=== PATIENT | male | born 1960 | race Caucasian/White ===

== ENCOUNTER 2017-07-26 11:45 | Inpatient (IN) | payer MEDICAID, OTHER ==
[~2017-07-26 11:45] MED LIST: ETOMIDATE 20 MG INJ; LIDOCAINE 100 MG SYRINGE; ROCURONIUM 50 MG INJ
[2017-07-26] MEDS: ONDANSETRON 4 MG INJ IV ×2 (13:04→19:55)
[2017-07-26] MEDS: MAGNESIUM SULFATE 2 GM, MULTIVITAMINS 10 ML, THIAMINE 100 MG, FOLIC ACID 1 MG in SOD CH... IV (13:40)
[2017-07-26] MEDS: SOD CHLORIDE 0.9% 500 ML IV (14:06)
[2017-07-26 14:17] LABS: ADD MAN DIFF? NO
[2017-07-26 14:20] LABS: BASOPHIL # 0.1 10^3/ul (0.0-0.1); BASOPHILS % 1.3 % (0.0-2.0); EOSINOPHILS # 0.1 10^3/ul (0.0-0.5); EOSINOPHILS % 1.1 % (0.0-7.0); HEMATOCRIT 38.4 % (42.0-52.0); HEMOGLOBIN 13.3 g/dl (14.0-18.0); LYMPHOCYTES # 1.7 10^3/ul (0.8-2.9); LYMPHOCYTES % 26.1 % (15.0-51.0); MEAN CORPUSCULAR HEMOGLOBIN 32.8 pg (29.0-33.0); MEAN CORPUSCULAR HGB CONC 34.6 g/dl (32.0-37.0); MEAN CORPUSCULAR VOLUME 94.6 fl (82.0-101.0); MEAN PLATELET VOLUME 11.7 fl (7.4-10.4); MONOCYTE # 0.5 10^3/ul (0.3-0.9); MONOCYTES % 7.4 % (0.0-11.0); NEUTROPHIL # 4.1 10^3/ul (1.6-7.5); NEUTROPHILS % 63.5 % (39.0-77.0); PLATELET COUNT 127 10^3/UL (140-415); POSITIVE DIFF @See below; RED BLOOD COUNT 4.06 10^6/ul (4.70-6.10); RED CELL DISTRIBUTION WIDTH 11.4 % (11.5-14.5)
[2017-07-26 14:20] LABS: WHITE BLOOD COUNT 6.4 10^3/ul (4.8-10.8)
[2017-07-26 14:27] LABS: ALANINE AMINOTRANSFERASE 106 IU/L (13-69); ALBUMIN 4.3 g/dl (3.3-4.9); ALBUMIN/GLOBULIN RATIO 1.04; ALKALINE PHOSPHATASE 184 IU/L (42-121); ANION GAP 18 (8-16); ASPARTATE AMINO TRANSFERASE 300 IU/L (15-46); BILIRUBIN,INDIRECT 0.5 mg/dl (0-1.1); BILIRUBIN,TOTAL 0.5 mg/dl (0.2-1.3); BLOOD UREA NITROGEN 3 mg/dl (7-20); CALCIUM 8.9 mg/dl (8.4-10.2); CARBON DIOXIDE 25 mmol/L (21-31); CHLORIDE 103 mmol/L (97-110); CREATININE 0.47 mg/dl (0.61-1.24); GLUCOSE 199 mg/dl (70-220); POTASSIUM 3.1 mmol/L (3.5-5.1); SODIUM 143 mmol/L (135-144); TOTAL PROTEIN 8.4 g/dl (6.1-8.1)
[2017-07-26] MEDS: LORAZEPAM 2 MG INJ IV (14:30)
[2017-07-26] MEDS: LEVETIRACETAM 1000 MG (PMX) 100 ML IVPB (14:30)
[2017-07-26 14:50] LABS: INR 1.04; PROTIME 13.7 Sec (11.9-14.9); PT RATIO 1.1
[2017-07-26 14:51] LABS: PARTIAL THROMBOPLASTIN TIME 27.7 Sec (25.0-35.0)
[2017-07-26] MEDS: ROCURONIUM 50 MG INJ IV (14:53)
[2017-07-26] MEDS: LIDOCAINE 100 MG SYRINGE IV (14:53)
[2017-07-26] MEDS: ETOMIDATE 20 MG INJ IV (14:55)
[2017-07-26] MEDS ORDERED: MANNITOL 25% 50 ML INJ IV* (15:30)
[2017-07-26] MEDS ORDERED: niCARdipine-NS 0.1MG/ML DRIP 200 ML IV (15:30)
[2017-07-26] MEDS: SOD CHLORIDE 0.9% 1,000 ML IV (15:58)
[2017-07-26] MEDS: MANNITOL 20% 250 ML IV (16:00)
[2017-07-26] MEDS ORDERED: ACETAMINOPHEN 325 MG TAB PO (16:00)
[2017-07-26] MEDS ORDERED: ONDANSETRON 4 MG INJ IV (16:00)
[2017-07-26 16:16] LABS: Allen Test ACCEPTAB; Arterial Base Excess 1.3 mmol/L (-3.0-3); Arterial Blood Gas Oxygen Sat 99.7 mmHG (95.0-98.0); Arterial COHb 0.6 % (0.0-3.0); Arterial Fraction of Oxyhgb 98.9 % (93.0-99.0); Arterial MetHb 0.2 % (0.0-1.5); Arterial Total Hemglobin 14.3 g/dl (12.0-18.0); Arterial pCO2 47.2 mmhg (35-45); MODE VENT - AC; Site Right Radial
[2017-07-26] MEDS: SOD CHLORIDE 0.9% 100 ML (16:35)
[2017-07-26] MEDS: IOHEXOL 100 ML (16:35)
[2017-07-26] MEDS: LIDOCAINE 1%/EPI 30 ML INJ INJ (17:21)
[2017-07-26] MEDS: niCARdipine 25 MG in SOD CHLORIDE 0.9% 250 ML IV (17:30)
[2017-07-26] MEDS ORDERED: NACL 0.9% 3 ML SYG IV (17:30)
[2017-07-26] MEDS: PROPOFOL 100 ML IV (17:33)
[2017-07-26 20:40] LABS: AMPHETAMINE/METHAMPHETAMINE Negative (NEGATIVE); BARBITURATES Negative (NEGATIVE); BENZODIAZEPINES Negative (NEGATIVE); CANNABINOIDS Negative (NEGATIVE); COCAINE Negative (NEGATIVE); OPIATES Negative (NEGATIVE)
[2017-07-26] MEDS: LEVETIRACETAM 500 MG (PMX) 100 ML IVPB (22:44)
[2017-07-26] MEDS: NS + KCL 20 MEQ 1,000 ML IV (22:48)
[2017-07-27] MEDS: LORAZEPAM 2 MG INJ IV (02:22)
[2017-07-27] MEDS: PROPOFOL 100 ML IV ×6 (02:22→22:36)
[2017-07-27] MEDS: NS + KCL 20 MEQ 1,000 ML IV ×3 (03:07→23:07)
[2017-07-27] MEDS: LEVOFLOXACIN 500MG/D5W (PMX) 100 ML IVPB (03:19)
[2017-07-27] MEDS: ACETAMINOPHEN 1000MG/100ML IV 100 ML IVPB (03:21)
[2017-07-27 03:25] LABS: ADD MAN DIFF? NO; HAAIG REFLEX REFLEX FILED
[2017-07-27 03:31] LABS: WHITE BLOOD COUNT 12.7 10^3/ul (4.8-10.8)
[2017-07-27 03:31] LABS: ABNORMAL IP MESSAGE 1; BASOPHILS % 0.2 % (0.0-2.0); HEMATOCRIT 33.9 % (42.0-52.0); HEMOGLOBIN 11.8 g/dl (14.0-18.0); LYMPHOCYTES # 0.4 10^3/ul (0.8-2.9); LYMPHOCYTES % 2.8 % (15.0-51.0); MEAN CORPUSCULAR HEMOGLOBIN 32.8 pg (29.0-33.0); MEAN CORPUSCULAR HGB CONC 34.8 g/dl (32.0-37.0); MEAN CORPUSCULAR VOLUME 94.2 fl (82.0-101.0); MEAN PLATELET VOLUME 12.2 fl (7.4-10.4); MONOCYTE # 0.8 10^3/ul (0.3-0.9); MONOCYTES % 6.5 % (0.0-11.0); NEUTROPHIL # 11.4 10^3/ul (1.6-7.5); NEUTROPHILS % 89.9 % (39.0-77.0); PLATELET COUNT 111 10^3/UL (140-415); POSITIVE DIFF @See below; RED CELL DISTRIBUTION WIDTH 11.5 % (11.5-14.5)
[2017-07-27 04:02] LABS: ALANINE AMINOTRANSFERASE 89 IU/L (13-69); ALBUMIN/GLOBULIN RATIO 1.17; ALKALINE PHOSPHATASE 126 IU/L (42-121); ANION GAP 15 (8-16); ASPARTATE AMINO TRANSFERASE 154 IU/L (15-46); BILIRUBIN,INDIRECT 1.3 mg/dl (0-1.1); BILIRUBIN,TOTAL 1.3 mg/dl (0.2-1.3); BLOOD UREA NITROGEN 7 mg/dl (7-20); CALCIUM 8.3 mg/dl (8.4-10.2); CARBON DIOXIDE 30 mmol/L (21-31); CHLORIDE 103 mmol/L (97-110); CREATININE 0.61 mg/dl (0.61-1.24); GLUCOSE 178 mg/dl (70-220); MAGNESIUM 1.4 mg/dl (1.7-2.5); POTASSIUM 3.9 mmol/L (3.5-5.1); SODIUM 144 mmol/L (135-144); TOTAL PROTEIN 7.4 g/dl (6.1-8.1)
[2017-07-27] MEDS: PANTOPRAZOLE 40 MG INJ IV (05:34)
[2017-07-27 06:20] LABS: HEPATITIS B SURFACE ANTIGEN NEGATIVE (NEGATIVE)
[2017-07-27 06:56] LABS: HEPATITIS B CORE ANTIBODY NEGATIVE (NEGATIVE); HEPATITIS C VIRAL ANTIBODY NEGATIVE (NEGATIVE)
[2017-07-27] MEDS: morphine 2 MG INJ IV ×2 (08:51→12:34)
[2017-07-27] MEDS: LEVETIRACETAM 500 MG (PMX) 100 ML IVPB ×2 (08:51→20:24)
[2017-07-27 09:05] LABS: HEMOGLOBIN A1C 5.3 % (0-5.9)
[2017-07-27] MEDS: MULTIVITAMINS 10 ML, THIAMINE 100 MG, FOLIC ACID 1 MG in SOD CHLORIDE 0.9% 1,000 ML IVPB (10:54)
[2017-07-27] MEDS: MAGNESIUM SULFATE 4 GM/100 ML 100 ML IVPB (10:54)
[2017-07-28] MEDS: PROPOFOL 100 ML IV ×5 (02:19→21:11)
[2017-07-28] MEDS: LEVOFLOXACIN 500MG/D5W (PMX) 100 ML IVPB (03:05)
[2017-07-28 04:56] LABS: AADO2 Arterial 81.1 mmHg (7.0-24.0); ADD MAN DIFF? NO; Allen Test ACCEPTAB; Arterial Base Excess 1.2 mmol/L (-3.0-3); Arterial COHb 0.3 % (0.0-3.0); Arterial Fraction of Oxyhgb 98.5 % (93.0-99.0); Arterial HCO3 21.7 mmol/L (22.0-26.0); Arterial MetHb 0.2 % (0.0-1.5); Arterial Total Hemglobin 10.9 g/dl (12.0-18.0); Arterial pCO2 22.9 mmhg (35-45); MODE VENT - AC; Site Right Radial
[2017-07-28 05:07] LABS: ABNORMAL IP MESSAGE 1; BASOPHILS % 0.4 % (0.0-2.0); HEMATOCRIT 28.6 % (42.0-52.0); LYMPHOCYTES # 0.6 10^3/ul (0.8-2.9); LYMPHOCYTES % 7.7 % (15.0-51.0); MEAN CORPUSCULAR VOLUME 94.4 fl (82.0-101.0); MEAN PLATELET VOLUME 12.2 fl (7.4-10.4); MONOCYTE # 0.9 10^3/ul (0.3-0.9); NEUTROPHIL # 6.7 10^3/ul (1.6-7.5); NEUTROPHILS % 80.5 % (39.0-77.0); PLATELET COUNT 89 10^3/UL (140-415); POSITIVE DIFF @See below; RED BLOOD COUNT 3.03 10^6/ul (4.70-6.10); RED CELL DISTRIBUTION WIDTH 11.6 % (11.5-14.5)
[2017-07-28 05:07] LABS: WHITE BLOOD COUNT 8.3 10^3/ul (4.8-10.8)
[2017-07-28 05:31] LABS: ALANINE AMINOTRANSFERASE 67 IU/L (13-69); ALBUMIN 3.4 g/dl (3.3-4.9); ALBUMIN/GLOBULIN RATIO 1.09; ALKALINE PHOSPHATASE 92 IU/L (42-121); ANION GAP 13 (8-16); ASPARTATE AMINO TRANSFERASE 87 IU/L (15-46); BILIRUBIN,INDIRECT 1.6 mg/dl (0-1.1); BILIRUBIN,TOTAL 1.6 mg/dl (0.2-1.3); BLOOD UREA NITROGEN 12 mg/dl (7-20); CALCIUM 8.2 mg/dl (8.4-10.2); CARBON DIOXIDE 23 mmol/L (21-31); CHLORIDE 109 mmol/L (97-110); CREATININE 0.58 mg/dl (0.61-1.24); GLUCOSE 142 mg/dl (70-220); POTASSIUM 3.1 mmol/L (3.5-5.1); SODIUM 142 mmol/L (135-144); TOTAL PROTEIN 6.5 g/dl (6.1-8.1)
[2017-07-28] MEDS: NS + KCL 20 MEQ 1,000 ML IV ×2 (05:35→18:38)
[2017-07-28] MEDS: PANTOPRAZOLE 40 MG INJ IV (05:35)
[2017-07-28 06:11] LABS: MAGNESIUM 2.2 mg/dl (1.7-2.5)
[2017-07-28] MEDS: MULTIVITAMINS 10 ML, THIAMINE 100 MG, FOLIC ACID 1 MG in SOD CHLORIDE 0.9% 1,000 ML IVPB (09:49)
[2017-07-28] MEDS: LEVETIRACETAM 500 MG (PMX) 100 ML IVPB ×2 (09:49→21:08)
[2017-07-28] MEDS: morphine 2 MG INJ IV (09:50)
[2017-07-28] MEDS: FENTAnyl (DRIP) 1000 mcg/100mL 100 ML IV ×2 (11:19→19:30)
[2017-07-29] MEDS: PROPOFOL 100 ML IV ×4 (00:17→19:06)
[2017-07-29] MEDS: LEVOFLOXACIN 500MG/D5W (PMX) 100 ML IVPB (02:01)
[2017-07-29] MEDS: FENTAnyl (DRIP) 1000 mcg/100mL 100 ML IV ×2 (04:19→19:06)
[2017-07-29] MEDS: NS + KCL 20 MEQ 1,000 ML IV ×2 (05:12→21:02)
[2017-07-29] MEDS: PANTOPRAZOLE 40 MG INJ IV (05:13)
[2017-07-29 05:44] LABS: ADD MAN DIFF? NO
[2017-07-29 06:01] LABS: ABNORMAL IP MESSAGE 1; BASOPHIL # 0.1 10^3/ul (0.0-0.1); BASOPHILS % 0.7 % (0.0-2.0); EOSINOPHILS # 0.2 10^3/ul (0.0-0.5); EOSINOPHILS % 2.3 % (0.0-7.0); HEMATOCRIT 27.8 % (42.0-52.0); HEMOGLOBIN 9.4 g/dl (14.0-18.0); LYMPHOCYTES # 1.2 10^3/ul (0.8-2.9); LYMPHOCYTES % 15.6 % (15.0-51.0); MEAN CORPUSCULAR HEMOGLOBIN 33.6 pg (29.0-33.0); MEAN CORPUSCULAR HGB CONC 33.8 g/dl (32.0-37.0); MEAN CORPUSCULAR VOLUME 99.3 fl (82.0-101.0); MONOCYTE # 0.7 10^3/ul (0.3-0.9); MONOCYTES % 9.3 % (0.0-11.0); NEUTROPHIL # 5.3 10^3/ul (1.6-7.5); NEUTROPHILS % 71.7 % (39.0-77.0); PLATELET COUNT 82 10^3/UL (140-415); POSITIVE DIFF @See below; RED CELL DISTRIBUTION WIDTH 11.7 % (11.5-14.5)
[2017-07-29 06:01] LABS: WHITE BLOOD COUNT 7.4 10^3/ul (4.8-10.8)
[2017-07-29 06:22] LABS: AADO2 Arterial 48.9 mmHg (7.0-24.0); Allen Test ACCEPTAB; Arterial Base Excess -2.6 mmol/L (-3.0-3); Arterial Blood Gas Oxygen Sat 98.2 mmHG (95.0-98.0); Arterial COHb 0.4 % (0.0-3.0); Arterial Fraction of Oxyhgb 97.6 % (93.0-99.0); Arterial HCO3 21.6 mmol/L (22.0-26.0); Arterial MetHb 0.2 % (0.0-1.5); Arterial pCO2 35.4 mmhg (35-45); MODE VENT - AC; Site Right Radial
[2017-07-29 06:27] LABS: ANION GAP 11 (8-16); BLOOD UREA NITROGEN 9 mg/dl (7-20); CARBON DIOXIDE 22 mmol/L (21-31); CHLORIDE 113 mmol/L (97-110); CREATININE 0.44 mg/dl (0.61-1.24); GLUCOSE 87 mg/dl (70-220); POTASSIUM 3.8 mmol/L (3.5-5.1); SODIUM 142 mmol/L (135-144)
[2017-07-29] MEDS: MULTIVITAMINS 10 ML, THIAMINE 100 MG, FOLIC ACID 1 MG in SOD CHLORIDE 0.9% 1,000 ML IVPB (08:50)
[2017-07-29] MEDS: LEVETIRACETAM 500 MG (PMX) 100 ML IVPB ×2 (08:50→21:02)
[2017-07-30] MEDS: PROPOFOL 100 ML IV ×4 (03:55→23:09)
[2017-07-30] MEDS: PANTOPRAZOLE 40 MG INJ IV (05:46)
[2017-07-30] MEDS: NS + KCL 20 MEQ 1,000 ML IV ×3 (05:46→15:46)
[2017-07-30] MEDS: LEVETIRACETAM 500 MG (PMX) 100 ML IVPB ×2 (08:18→20:24)
[2017-07-30 08:29] LABS: ADD MAN DIFF? NO
[2017-07-30 08:39] LABS: WHITE BLOOD COUNT 6.8 10^3/ul (4.8-10.8)
[2017-07-30 08:39] LABS: BASOPHIL # 0.1 10^3/ul (0.0-0.1); BASOPHILS % 0.7 % (0.0-2.0); EOSINOPHILS # 0.3 10^3/ul (0.0-0.5); EOSINOPHILS % 4.3 % (0.0-7.0); HEMATOCRIT 30.3 % (42.0-52.0); HEMOGLOBIN 10.4 g/dl (14.0-18.0); LYMPHOCYTES # 0.8 10^3/ul (0.8-2.9); LYMPHOCYTES % 12.2 % (15.0-51.0); MEAN CORPUSCULAR HGB CONC 34.3 g/dl (32.0-37.0); MEAN CORPUSCULAR VOLUME 96.2 fl (82.0-101.0); MONOCYTES % 14.6 % (0.0-11.0); NEUTROPHIL # 4.6 10^3/ul (1.6-7.5); NEUTROPHILS % 67.8 % (39.0-77.0); POSITIVE DIFF @See below; RED BLOOD COUNT 3.15 10^6/ul (4.70-6.10); RED CELL DISTRIBUTION WIDTH 11.1 % (11.5-14.5)
[2017-07-30 08:40] LABS: PLATELET COUNT 120 10^3/UL (140-415)
[2017-07-30 08:51] LABS: ANION GAP 11 (8-16)
[2017-07-30 08:56] LABS: ALANINE AMINOTRANSFERASE 57 IU/L (13-69); ALBUMIN 3.1 g/dl (3.3-4.9); ALKALINE PHOSPHATASE 91 IU/L (42-121); ASPARTATE AMINO TRANSFERASE 60 IU/L (15-46); BILIRUBIN,INDIRECT 0.7 mg/dl (0-1.1); BILIRUBIN,TOTAL 0.7 mg/dl (0.2-1.3); BLOOD UREA NITROGEN 6 mg/dl (7-20); CALCIUM 8.2 mg/dl (8.4-10.2); CARBON DIOXIDE 22 mmol/L (21-31); CHLORIDE 108 mmol/L (97-110); CREATININE 0.43 mg/dl (0.61-1.24); GLUCOSE 85 mg/dl (70-220); POTASSIUM 3.4 mmol/L (3.5-5.1); SODIUM 138 mmol/L (135-144); TOTAL PROTEIN 6.2 g/dl (6.1-8.1)
[2017-07-30] MEDS: FENTAnyl (DRIP) 1000 mcg/100mL 100 ML IV (10:08)
[2017-07-30] MEDS: niCARdipine 25 MG in SOD CHLORIDE 0.9% 250 ML IV (10:08)
[2017-07-30] MEDS: LORAZEPAM 2 MG INJ IV (23:10)
[2017-07-31] MEDS: FENTAnyl (DRIP) 1000 mcg/100mL 100 ML IV ×2 (01:02→14:09)
[2017-07-31] MEDS: NS + KCL 20 MEQ 1,000 ML IV ×4 (01:03→21:25)
[2017-07-31] MEDS: niCARdipine 25 MG in SOD CHLORIDE 0.9% 250 ML IV ×2 (02:23→14:06)
[2017-07-31] MEDS: PANTOPRAZOLE 40 MG INJ IV (05:27)
[2017-07-31 05:31] LABS: ADD MAN DIFF? NO
[2017-07-31] MEDS: PROPOFOL 100 ML IV ×3 (05:32→21:27)
[2017-07-31 05:33] LABS: WHITE BLOOD COUNT 6.4 10^3/ul (4.8-10.8)
[2017-07-31 05:33] LABS: BASOPHILS % 0.6 % (0.0-2.0); EOSINOPHILS # 0.1 10^3/ul (0.0-0.5); EOSINOPHILS % 0.9 % (0.0-7.0); HEMATOCRIT 30.6 % (42.0-52.0); HEMOGLOBIN 11.2 g/dl (14.0-18.0); LYMPHOCYTES # 0.8 10^3/ul (0.8-2.9); LYMPHOCYTES % 13.2 % (15.0-51.0); MEAN CORPUSCULAR HEMOGLOBIN 33.5 pg (29.0-33.0); MEAN CORPUSCULAR HGB CONC 36.6 g/dl (32.0-37.0); MEAN CORPUSCULAR VOLUME 91.6 fl (82.0-101.0); MEAN PLATELET VOLUME 10.6 fl (7.4-10.4); MONOCYTE # 0.9 10^3/ul (0.3-0.9); MONOCYTES % 13.7 % (0.0-11.0); NEUTROPHIL # 4.5 10^3/ul (1.6-7.5); NEUTROPHILS % 70.8 % (39.0-77.0); PLATELET COUNT 180 10^3/UL (140-415); RED BLOOD COUNT 3.34 10^6/ul (4.70-6.10); RED CELL DISTRIBUTION WIDTH 11.1 % (11.5-14.5)
[2017-07-31 05:53] LABS: ANION GAP 12 (8-16); BLOOD UREA NITROGEN 4 mg/dl (7-20); CALCIUM 8.6 mg/dl (8.4-10.2); CARBON DIOXIDE 28 mmol/L (21-31); CHLORIDE 107 mmol/L (97-110); CREATININE 0.43 mg/dl (0.61-1.24); GLUCOSE 135 mg/dl (70-220); POTASSIUM 3.1 mmol/L (3.5-5.1); SODIUM 144 mmol/L (135-144)
[2017-07-31] MEDS: POTASSIUM CHLORIDE 20 MEQ POWDER FOR ORAL SOLN NGT (06:22)
[2017-07-31 08:04] LABS: AADO2 Arterial 37.7 mmHg (7.0-24.0); Allen Test ACCEPTAB; Arterial Base Excess 4.9 mmol/L (-3.0-3); Arterial Blood Gas Oxygen Sat 98.5 mmHG (95.0-98.0); Arterial COHb 0.3 % (0.0-3.0); Arterial Fraction of Oxyhgb 97.9 % (93.0-99.0); Arterial HCO3 28.1 mmol/L (22.0-26.0); Arterial MetHb 0.3 % (0.0-1.5); Arterial Total Hemglobin 11.7 g/dl (12.0-18.0); Arterial pCO2 36.5 mmhg (35-45); MODE VENT - AC; Site Right Radial
[2017-07-31] MEDS: LEVETIRACETAM 500 MG (PMX) 100 ML IVPB ×2 (09:00→21:22)
[2017-08-01] MEDS: niCARdipine 25 MG in SOD CHLORIDE 0.9% 250 ML IV ×3 (00:08→13:34)
[2017-08-01] MEDS: FENTAnyl (DRIP) 1000 mcg/100mL 100 ML IV ×2 (02:42→23:18)
[2017-08-01] MEDS: PROPOFOL 100 ML IV ×2 (03:00→23:19)
[2017-08-01 06:05] LABS: ADD MAN DIFF? NO
[2017-08-01 06:33] LABS: ABNORMAL IP MESSAGE 1; BASOPHILS % 0.2 % (0.0-2.0); EOSINOPHILS # 0.1 10^3/ul (0.0-0.5); EOSINOPHILS % 0.5 % (0.0-7.0); HEMATOCRIT 31.2 % (42.0-52.0); LYMPHOCYTES # 0.5 10^3/ul (0.8-2.9); LYMPHOCYTES % 4.2 % (15.0-51.0); MEAN CORPUSCULAR HEMOGLOBIN 33.3 pg (29.0-33.0); MEAN CORPUSCULAR HGB CONC 35.3 g/dl (32.0-37.0); MEAN CORPUSCULAR VOLUME 94.5 fl (82.0-101.0); MEAN PLATELET VOLUME 10.6 fl (7.4-10.4); MONOCYTE # 2.1 10^3/ul (0.3-0.9); NEUTROPHIL # 9.1 10^3/ul (1.6-7.5); NEUTROPHILS % 76.3 % (39.0-77.0); PLATELET COUNT 221 10^3/UL (140-415); POSITIVE DIFF @See below; RED CELL DISTRIBUTION WIDTH 11.2 % (11.5-14.5)
[2017-08-01 06:33] LABS: WHITE BLOOD COUNT 11.9 10^3/ul (4.8-10.8)
[2017-08-01] MEDS: NS + KCL 20 MEQ 1,000 ML IV ×3 (06:45→19:00)
[2017-08-01] MEDS: PANTOPRAZOLE 40 MG INJ IV (06:47)
[2017-08-01 06:52] LABS: ANION GAP 10 (8-16); BLOOD UREA NITROGEN 7 mg/dl (7-20); CALCIUM 8.4 mg/dl (8.4-10.2); CARBON DIOXIDE 30 mmol/L (21-31); CHLORIDE 106 mmol/L (97-110); CREATININE 0.41 mg/dl (0.61-1.24); GLUCOSE 175 mg/dl (70-220); MAGNESIUM 1.7 mg/dl (1.7-2.5); PHOSPHORUS 3.1 mg/dl (2.5-4.9); SODIUM 143 mmol/L (135-144)
[2017-08-01] MEDS: POTASSIUM CHLORIDE 100 ML IVPB ×3 (10:19→15:27)
[2017-08-01] MEDS: LEVETIRACETAM 500 MG (PMX) 100 ML IVPB ×2 (10:25→21:15)
[2017-08-01 12:26] LABS: AADO2 Arterial 71.6 mmHg (7.0-24.0); Allen Test ACCEPTAB; Arterial Base Excess 3.5 mmol/L (-3.0-3); Arterial Blood Gas Oxygen Sat 97.7 mmHG (95.0-98.0); Arterial COHb 0.3 % (0.0-3.0); Arterial Fraction of Oxyhgb 97.2 % (93.0-99.0); Arterial HCO3 26.8 mmol/L (22.0-26.0); Arterial MetHb 0.2 % (0.0-1.5); Arterial Total Hemglobin 12.3 g/dl (12.0-18.0); Arterial pCO2 36.1 mmhg (35-45); Blood Gas PS 10; MODE VENT - CPAP; Site Right Radial
[2017-08-01] MEDS: morphine 2 MG INJ IV (13:19)
[2017-08-01 14:48] LABS: AADO2 Arterial 47.8 mmHg (7.0-24.0); Allen Test ACCEPTAB; Arterial Blood Gas Oxygen Sat 98.1 mmHG (95.0-98.0); Arterial COHb 0.1 % (0.0-3.0); Arterial Fraction of Oxyhgb 97.8 % (93.0-99.0); Arterial HCO3 27.7 mmol/L (22.0-26.0); Arterial MetHb 0.2 % (0.0-1.5); Arterial Total Hemglobin 11.6 g/dl (12.0-18.0); Arterial pCO2 38.1 mmhg (35-45); MODE VENT - AC; Site Right Radial
[2017-08-01] MEDS: ACETAMINOPHEN 1000MG/100ML IV 100 ML IVPB (20:14)
[2017-08-01] MEDS: LORAZEPAM 2 MG INJ IV (23:19)
[2017-08-02 05:27] LABS: ADD MAN DIFF? NO
[2017-08-02] MEDS: NS + KCL 20 MEQ 1,000 ML IV (05:38)
[2017-08-02 05:40] LABS: WHITE BLOOD COUNT 13.5 10^3/ul (4.8-10.8)
[2017-08-02 05:40] LABS: ABNORMAL IP MESSAGE 1; BASOPHIL # 0.1 10^3/ul (0.0-0.1); BASOPHILS % 0.4 % (0.0-2.0); EOSINOPHILS % 0.2 % (0.0-7.0); HEMATOCRIT 32.2 % (42.0-52.0); HEMOGLOBIN 11.4 g/dl (14.0-18.0); LYMPHOCYTES # 0.9 10^3/ul (0.8-2.9); LYMPHOCYTES % 6.7 % (15.0-51.0); MEAN CORPUSCULAR HEMOGLOBIN 33.2 pg (29.0-33.0); MEAN CORPUSCULAR HGB CONC 35.4 g/dl (32.0-37.0); MEAN CORPUSCULAR VOLUME 93.9 fl (82.0-101.0); MEAN PLATELET VOLUME 10.8 fl (7.4-10.4); MONOCYTE # 1.7 10^3/ul (0.3-0.9); MONOCYTES % 12.3 % (0.0-11.0); NEUTROPHIL # 10.6 10^3/ul (1.6-7.5); PLATELET COUNT 272 10^3/UL (140-415); POSITIVE DIFF @See below; RED BLOOD COUNT 3.43 10^6/ul (4.70-6.10); RED CELL DISTRIBUTION WIDTH 11.6 % (11.5-14.5)
[2017-08-02] MEDS: PANTOPRAZOLE 40 MG INJ IV (06:57)
[2017-08-02] MEDS: PROPOFOL 100 ML IV ×2 (07:00→23:38)
[2017-08-02 07:25] LABS: ANION GAP 19 (8-16); BLOOD UREA NITROGEN 8 mg/dl (7-20); CARBON DIOXIDE 26 mmol/L (21-31); CHLORIDE 106 mmol/L (97-110); CREATININE 0.46 mg/dl (0.61-1.24); GLUCOSE 167 mg/dl (70-220); MAGNESIUM 1.7 mg/dl (1.7-2.5); PHOSPHORUS 3.4 mg/dl (2.5-4.9); SODIUM 148 mmol/L (135-144)
[2017-08-02 07:29] LABS: POTASSIUM 2.8 mmol/L (3.5-5.1)
[2017-08-02] MEDS: LEVETIRACETAM 500 MG (PMX) 100 ML IVPB ×2 (08:52→20:49)
[2017-08-02] MEDS ORDERED: POTASSIUM CHLORIDE 0 ML (09:01)
[2017-08-02] MEDS: POTASSIUM CHLORIDE 100 ML IVPB ×3 (09:50→14:00)
[2017-08-02] MEDS: LORAZEPAM 2 MG INJ IV (12:25)
[2017-08-02] MEDS: AMLODIPINE 10 MG TAB PO (15:46)
[2017-08-02] MEDS: ACETAMINOPHEN 1000MG/100ML IV 100 ML IVPB (20:47)
[2017-08-02] MEDS: FAMOTIDINE 20 MG TAB GTB (20:49)
[2017-08-02] MEDS: niCARdipine 25 MG in SOD CHLORIDE 0.9% 250 ML IV (20:50)
[2017-08-03] MEDS: niCARdipine 25 MG in SOD CHLORIDE 0.9% 250 ML IV ×3 (04:31→22:30)
[2017-08-03 05:22] LABS: ADD MAN DIFF? NO
[2017-08-03 05:25] LABS: ABNORMAL IP MESSAGE 1; BASOPHIL # 0.1 10^3/ul (0.0-0.1); BASOPHILS % 0.5 % (0.0-2.0); EOSINOPHILS # 0.1 10^3/ul (0.0-0.5); EOSINOPHILS % 0.5 % (0.0-7.0); HEMOGLOBIN 11.4 g/dl (14.0-18.0); LYMPHOCYTES # 1.3 10^3/ul (0.8-2.9); LYMPHOCYTES % 12.1 % (15.0-51.0); MEAN CORPUSCULAR HEMOGLOBIN 32.7 pg (29.0-33.0); MEAN CORPUSCULAR HGB CONC 35.6 g/dl (32.0-37.0); MEAN CORPUSCULAR VOLUME 91.7 fl (82.0-101.0); MEAN PLATELET VOLUME 10.1 fl (7.4-10.4); MONOCYTE # 1.7 10^3/ul (0.3-0.9); MONOCYTES % 15.3 % (0.0-11.0); NEUTROPHIL # 7.5 10^3/ul (1.6-7.5); NEUTROPHILS % 68.3 % (39.0-77.0); PLATELET COUNT 333 10^3/UL (140-415); POSITIVE DIFF @See below; RED BLOOD COUNT 3.49 10^6/ul (4.70-6.10); RED CELL DISTRIBUTION WIDTH 11.3 % (11.5-14.5)
[2017-08-03] MEDS: FENTAnyl (DRIP) 1000 mcg/100mL 100 ML IV (06:46)
[2017-08-03 08:07] LABS: ANION GAP 17 (8-16); BLOOD UREA NITROGEN 10 mg/dl (7-20); CALCIUM 8.9 mg/dl (8.4-10.2); CARBON DIOXIDE 28 mmol/L (21-31); CHLORIDE 98 mmol/L (97-110); CREATININE 0.43 mg/dl (0.61-1.24); GLUCOSE 154 mg/dl (70-220); MAGNESIUM 1.7 mg/dl (1.7-2.5); PHOSPHORUS 3.6 mg/dl (2.5-4.9); SODIUM 140 mmol/L (135-144)
[2017-08-03] MEDS: MULTIVITAMINS THERAPEUTIC TAB PO (09:07)
[2017-08-03] MEDS: AMLODIPINE 10 MG TAB PO (09:07)
[2017-08-03] MEDS: FAMOTIDINE 20 MG TAB GTB ×2 (09:07→20:22)
[2017-08-03] MEDS: LEVETIRACETAM 500 MG (PMX) 100 ML IVPB ×2 (09:08→20:21)
[2017-08-03] MEDS: POTASSIUM CHLORIDE 50 ML IVPB ×2 (11:21→13:37)
[2017-08-03 11:30] LABS: AADO2 Arterial 66.1 mmHg (7.0-24.0); Allen Test ACCEPTAB; Arterial Base Excess 5.8 mmol/L (-3.0-3); Arterial COHb 0.3 % (0.0-3.0); Arterial Fraction of Oxyhgb 97.4 % (93.0-99.0); Arterial HCO3 28.5 mmol/L (22.0-26.0); Arterial MetHb 0.3 % (0.0-1.5); Arterial Total Hemglobin 11.5 g/dl (12.0-18.0); Arterial pCO2 34.6 mmhg (35-45); Blood Gas PS 10; MODE VENT - CPAP; Site Right Radial
[2017-08-03] MEDS: morphine 2 MG INJ IV (13:38)
[2017-08-03] MEDS: ACETAMINOPHEN 650MG/20.3ML CUP NGT (21:46)
[2017-08-04] MEDS: PROPOFOL 100 ML IV ×2 (01:30→13:30)
[2017-08-04] MEDS: niCARdipine 25 MG in SOD CHLORIDE 0.9% 250 ML IV ×3 (04:43→12:15)
[2017-08-04 05:50] LABS: ADD MAN DIFF? NO
[2017-08-04 06:29] LABS: ADD UMIC YES; UR ASCORBIC ACID 40 mg/dL (NEGATIVE); UR BACTERIA FEW /HPF (NONE SEEN); UR BILIRUBIN (Dip) NEGATIVE (NEGATIVE); UR BLOOD (Dip) NEGATIVE (NEGATIVE); UR CLARITY SLIGHTLY CLOUDY (CLEAR); UR COLOR AMBER (YELLOW); UR GLUCOSE (Dip) NEGATIVE (NEGATIVE); UR KETONES (Dip) NEGATIVE (NEGATIVE); UR LEUKOCYTE ESTERASE (Dip) NEGATIVE Leu/ul (NEGATIVE); UR MUCUS MANY /HPF (NONE SEEN); UR NITRITE (Dip) POSITIVE (NEGATIVE); UR RBC 1 /HPF (0-5); UR SPECIFIC GRAVITY (Dip) 1.019 (1.003-1.030); UR TOTAL PROTEIN (Dip) NEGATIVE (NEGATIVE); UR UROBILINOGEN (Dip) 2+ mg/dL (NEGATIVE); UR WBC 2 /HPF (0-5)
[2017-08-04 07:19] LABS: ABNORMAL IP MESSAGE 1; BASOPHIL # 0.1 10^3/ul (0.0-0.1); BASOPHILS % 0.7 % (0.0-2.0); EOSINOPHILS % 0.3 % (0.0-7.0); HEMATOCRIT 32.2 % (42.0-52.0); HEMOGLOBIN 11.7 g/dl (14.0-18.0); LYMPHOCYTES % 7.1 % (15.0-51.0); MEAN CORPUSCULAR HEMOGLOBIN 33.3 pg (29.0-33.0); MEAN CORPUSCULAR HGB CONC 36.3 g/dl (32.0-37.0); MEAN CORPUSCULAR VOLUME 91.7 fl (82.0-101.0); MEAN PLATELET VOLUME 10.2 fl (7.4-10.4); MONOCYTE # 1.7 10^3/ul (0.3-0.9); MONOCYTES % 12.6 % (0.0-11.0); NEUTROPHIL # 10.3 10^3/ul (1.6-7.5); PLATELET COUNT 356 10^3/UL (140-415); POSITIVE DIFF @See below; RED BLOOD COUNT 3.51 10^6/ul (4.70-6.10); RED CELL DISTRIBUTION WIDTH 11.2 % (11.5-14.5)
[2017-08-04 07:19] LABS: WHITE BLOOD COUNT 13.3 10^3/ul (4.8-10.8)
[2017-08-04 08:27] LABS: ANION GAP 15 (8-16); BLOOD UREA NITROGEN 13 mg/dl (7-20); CARBON DIOXIDE 28 mmol/L (21-31); CHLORIDE 98 mmol/L (97-110); CREATININE 0.45 mg/dl (0.61-1.24); GLUCOSE 158 mg/dl (70-220); MAGNESIUM 1.8 mg/dl (1.7-2.5); PHOSPHORUS 3.8 mg/dl (2.5-4.9); POTASSIUM 3.1 mmol/L (3.5-5.1); SODIUM 138 mmol/L (135-144)
[2017-08-04] MEDS: FAMOTIDINE 20 MG TAB GTB ×2 (08:31→20:00)
[2017-08-04] MEDS: AMLODIPINE 10 MG TAB PO (08:31)
[2017-08-04] MEDS: LEVETIRACETAM 500 MG (PMX) 100 ML IVPB ×2 (08:31→20:00)
[2017-08-04] MEDS: MULTIVITAMINS THERAPEUTIC TAB PO (08:31)
[2017-08-04] MEDS: ACETAMINOPHEN 650MG/20.3ML CUP NGT ×2 (08:32→20:00)
[2017-08-04] MEDS: POTASSIUM CHLORIDE 50 ML IVPB ×3 (10:18→16:14)
[2017-08-04] MEDS: PIPER-TAZO 3.375 GM IV (PMX) 100 ML IVPB ×2 (12:14→17:09)
[2017-08-05] MEDS: PROPOFOL 100 ML IV ×3 (00:40→19:28)
[2017-08-05] MEDS: PIPER-TAZO 3.375 GM IV (PMX) 100 ML IVPB ×4 (00:40→18:17)
[2017-08-05] MEDS: ACETAMINOPHEN 650MG/20.3ML CUP NGT (05:18)
[2017-08-05 05:50] LABS: ADD MAN DIFF? NO
[2017-08-05 05:57] LABS: WHITE BLOOD COUNT 13.3 10^3/ul (4.8-10.8)
[2017-08-05 05:57] LABS: BASOPHIL # 0.1 10^3/ul (0.0-0.1); BASOPHILS % 0.4 % (0.0-2.0); EOSINOPHILS % 0.2 % (0.0-7.0); HEMOGLOBIN 10.7 g/dl (14.0-18.0); LYMPHOCYTES % 7.8 % (15.0-51.0); MEAN CORPUSCULAR HEMOGLOBIN 32.8 pg (29.0-33.0); MEAN CORPUSCULAR HGB CONC 35.7 g/dl (32.0-37.0); MEAN PLATELET VOLUME 10.1 fl (7.4-10.4); MONOCYTE # 1.3 10^3/ul (0.3-0.9); MONOCYTES % 9.7 % (0.0-11.0); NEUTROPHIL # 10.7 10^3/ul (1.6-7.5); NEUTROPHILS % 80.3 % (39.0-77.0); PLATELET COUNT 405 10^3/UL (140-415); POSITIVE DIFF @See below; RED BLOOD COUNT 3.26 10^6/ul (4.70-6.10)
[2017-08-05 06:42] LABS: ANION GAP 12 (8-16); BLOOD UREA NITROGEN 13 mg/dl (7-20); CALCIUM 8.7 mg/dl (8.4-10.2); CARBON DIOXIDE 29 mmol/L (21-31); CHLORIDE 99 mmol/L (97-110); CREATININE 0.47 mg/dl (0.61-1.24); GLUCOSE 157 mg/dl (70-220); MAGNESIUM 1.8 mg/dl (1.7-2.5); PHOSPHORUS 3.4 mg/dl (2.5-4.9); POTASSIUM 3.2 mmol/L (3.5-5.1); SODIUM 137 mmol/L (135-144)
[2017-08-05] MEDS: AMLODIPINE 10 MG TAB PO (08:01)
[2017-08-05] MEDS: MULTIVITAMINS THERAPEUTIC TAB PO (08:01)
[2017-08-05] MEDS: FAMOTIDINE 20 MG TAB GTB ×2 (08:01→20:49)
[2017-08-05] MEDS: LEVETIRACETAM 500 MG (PMX) 100 ML IVPB ×2 (08:06→20:49)
[2017-08-05 08:25] LABS: AADO2 Arterial 48.6 mmHg (7.0-24.0); Allen Test ACCEPTAB; Arterial Base Excess 3.3 mmol/L (-3.0-3); Arterial Blood Gas Oxygen Sat 98.4 mmHG (95.0-98.0); Arterial COHb 0 % (0.0-3.0); Arterial Fraction of Oxyhgb 98.2 % (93.0-99.0); Arterial MetHb 0.2 % (0.0-1.5); Arterial Total Hemglobin 11.9 g/dl (12.0-18.0); Arterial pCO2 33.2 mmhg (35-45); Blood Gas PS 10; MODE VENT - CPAP; Site Right Radial
[2017-08-05] MEDS: POTASSIUM CHLORIDE 50 ML IVPB ×3 (09:09→13:21)
[2017-08-05] MEDS: FUROSEMIDE 40 MG INJ IV (09:14)
[2017-08-05] MEDS: LORAZEPAM 2 MG INJ IV ×2 (10:38→20:49)
[2017-08-06] MEDS: PIPER-TAZO 3.375 GM IV (PMX) 100 ML IVPB ×2 (01:05→05:48)
[2017-08-06 06:14] LABS: ADD MAN DIFF? NO
[2017-08-06 06:20] LABS: WHITE BLOOD COUNT 12.2 10^3/ul (4.8-10.8)
[2017-08-06 06:20] LABS: BASOPHIL # 0.1 10^3/ul (0.0-0.1); BASOPHILS % 0.8 % (0.0-2.0); EOSINOPHILS # 0.1 10^3/ul (0.0-0.5); EOSINOPHILS % 0.7 % (0.0-7.0); HEMATOCRIT 30.1 % (42.0-52.0); HEMOGLOBIN 10.9 g/dl (14.0-18.0); LYMPHOCYTES # 1.3 10^3/ul (0.8-2.9); LYMPHOCYTES % 10.7 % (15.0-51.0); MEAN CORPUSCULAR HEMOGLOBIN 33.1 pg (29.0-33.0); MEAN CORPUSCULAR HGB CONC 36.2 g/dl (32.0-37.0); MEAN CORPUSCULAR VOLUME 91.5 fl (82.0-101.0); MEAN PLATELET VOLUME 10.5 fl (7.4-10.4); MONOCYTES % 8.4 % (0.0-11.0); NEUTROPHIL # 9.5 10^3/ul (1.6-7.5); NEUTROPHILS % 77.5 % (39.0-77.0); PLATELET COUNT 459 10^3/UL (140-415); RED BLOOD COUNT 3.29 10^6/ul (4.70-6.10); RED CELL DISTRIBUTION WIDTH 11.2 % (11.5-14.5)
[2017-08-06 06:59] LABS: ANION GAP 13 (8-16); BLOOD UREA NITROGEN 17 mg/dl (7-20); CALCIUM 8.8 mg/dl (8.4-10.2); CARBON DIOXIDE 29 mmol/L (21-31); CHLORIDE 98 mmol/L (97-110); CREATININE 0.51 mg/dl (0.61-1.24); GLUCOSE 143 mg/dl (70-220); POTASSIUM 3.4 mmol/L (3.5-5.1); SODIUM 137 mmol/L (135-144)
[2017-08-06] MEDS: LEVETIRACETAM 500 MG (PMX) 100 ML IVPB ×2 (08:34→21:18)
[2017-08-06] MEDS: MULTIVITAMINS THERAPEUTIC TAB PO (08:35)
[2017-08-06] MEDS: AMLODIPINE 10 MG TAB PO (08:35)
[2017-08-06] MEDS: FUROSEMIDE 40 MG INJ IV (08:35)
[2017-08-06] MEDS: FAMOTIDINE 20 MG TAB GTB ×2 (08:35→21:18)
[2017-08-06 09:21] LABS: AADO2 Arterial 84.7 mmHg (7.0-24.0); Allen Test ACCEPTAB; Arterial Base Excess 5.2 mmol/L (-3.0-3); Arterial Blood Gas Oxygen Sat 96.2 mmHG (95.0-98.0); Arterial COHb 0.1 % (0.0-3.0); Arterial Fraction of Oxyhgb 95.9 % (93.0-99.0); Arterial HCO3 29.2 mmol/L (22.0-26.0); Arterial MetHb 0.2 % (0.0-1.5); Arterial Total Hemglobin 12.4 g/dl (12.0-18.0); Arterial pCO2 40.6 mmhg (35-45); Blood Gas PS 10; MODE VENT - CPAP; Site Right Radial
[2017-08-06] MEDS ORDERED: POTASSIUM CHLORIDE 50 ML IVPB (10:30)
[2017-08-06] MEDS: POTASSIUM CHLORIDE 20 MEQ POWDER FOR ORAL SOLN NGT (11:14)
[2017-08-06] MEDS: LEVOFLOXACIN 750MG/D5W (PMX) 150 ML IVPB (11:28)
[2017-08-06] MEDS: morphine 2 MG INJ IV (12:17)
[2017-08-06] MEDS: CEFOTAXIME 1 GM/50 ML (PMX) 50 ML IVPB ×2 (13:25→21:18)
[2017-08-06] MEDS: PROPOFOL 100 ML IV ×2 (13:30→19:30)
[2017-08-06] MEDS: hydrALAzine 20 MG INJ IV (17:40)
[2017-08-07] MEDS: LORAZEPAM 2 MG INJ IV (00:52)
[2017-08-07] MEDS: CEFOTAXIME 1 GM/50 ML (PMX) 50 ML IVPB ×3 (06:05→22:08)
[2017-08-07 06:27] LABS: ADD MAN DIFF? NO
[2017-08-07 06:38] LABS: BASOPHIL # 0.1 10^3/ul (0.0-0.1); BASOPHILS % 0.9 % (0.0-2.0); EOSINOPHILS # 0.1 10^3/ul (0.0-0.5); EOSINOPHILS % 0.7 % (0.0-7.0); HEMATOCRIT 31.7 % (42.0-52.0); HEMOGLOBIN 11.3 g/dl (14.0-18.0); LYMPHOCYTES # 1.3 10^3/ul (0.8-2.9); MEAN CORPUSCULAR HEMOGLOBIN 32.9 pg (29.0-33.0); MEAN CORPUSCULAR HGB CONC 35.6 g/dl (32.0-37.0); MEAN CORPUSCULAR VOLUME 92.4 fl (82.0-101.0); MEAN PLATELET VOLUME 10.4 fl (7.4-10.4); NEUTROPHILS % 78.5 % (39.0-77.0); PLATELET COUNT 512 10^3/UL (140-415); RED BLOOD COUNT 3.43 10^6/ul (4.70-6.10); RED CELL DISTRIBUTION WIDTH 11.5 % (11.5-14.5)
[2017-08-07 06:38] LABS: WHITE BLOOD COUNT 12.7 10^3/ul (4.8-10.8)
[2017-08-07 07:00] LABS: ANION GAP 15 (8-16); BLOOD UREA NITROGEN 21 mg/dl (7-20); CALCIUM 9.4 mg/dl (8.4-10.2); CARBON DIOXIDE 29 mmol/L (21-31); CHLORIDE 98 mmol/L (97-110); CREATININE 0.53 mg/dl (0.61-1.24); GLUCOSE 156 mg/dl (70-220); POTASSIUM 3.4 mmol/L (3.5-5.1); SODIUM 139 mmol/L (135-144)
[2017-08-07 08:22] LABS: AADO2 Arterial 39.4 mmHg (7.0-24.0); Allen Test ACCEPTAB; Arterial Base Excess 5.5 mmol/L (-3.0-3); Arterial Blood Gas Oxygen Sat 98.6 mmHG (95.0-98.0); Arterial COHb 0.3 % (0.0-3.0); Arterial HCO3 28.9 mmol/L (22.0-26.0); Arterial MetHb 0.3 % (0.0-1.5); Arterial Total Hemglobin 12.8 g/dl (12.0-18.0); MODE VENT - AC; Site Right Radial
[2017-08-07] MEDS ORDERED: POTASSIUM CHLORIDE (SR) 20 MEQ TAB PO (09:20)
[2017-08-07] MEDS: FAMOTIDINE 20 MG TAB GTB ×2 (09:48→20:34)
[2017-08-07] MEDS: LEVETIRACETAM 500 MG (PMX) 100 ML IVPB ×2 (09:48→20:34)
[2017-08-07] MEDS: FUROSEMIDE 40 MG INJ IV (09:48)
[2017-08-07] MEDS: AMLODIPINE 10 MG TAB PO (09:48)
[2017-08-07] MEDS: MULTIVITAMINS 30 ML CUP GTB (09:49)
[2017-08-07] MEDS: POTASSIUM CHLORIDE 20 MEQ POWDER FOR ORAL SOLN NGT (09:50)
[2017-08-07] MEDS: PROPOFOL 100 ML IV (11:30)
[2017-08-07] MEDS: LEVOFLOXACIN 750MG/D5W (PMX) 150 ML IVPB (13:06)
[2017-08-08] MEDS: PROPOFOL 100 ML IV ×2 (01:30→11:52)
[2017-08-08 05:49] LABS: ADD MAN DIFF? NO
[2017-08-08 06:00] LABS: WHITE BLOOD COUNT 12.4 10^3/ul (4.8-10.8)
[2017-08-08 06:00] LABS: BASOPHIL # 0.1 10^3/ul (0.0-0.1); BASOPHILS % 0.9 % (0.0-2.0); EOSINOPHILS # 0.1 10^3/ul (0.0-0.5); EOSINOPHILS % 0.5 % (0.0-7.0); HEMATOCRIT 32.8 % (42.0-52.0); HEMOGLOBIN 11.3 g/dl (14.0-18.0); LYMPHOCYTES # 1.3 10^3/ul (0.8-2.9); LYMPHOCYTES % 10.1 % (15.0-51.0); MEAN CORPUSCULAR HGB CONC 34.5 g/dl (32.0-37.0); MEAN CORPUSCULAR VOLUME 92.9 fl (82.0-101.0); MONOCYTE # 1.3 10^3/ul (0.3-0.9); MONOCYTES % 10.1 % (0.0-11.0); NEUTROPHIL # 9.5 10^3/ul (1.6-7.5); NEUTROPHILS % 76.3 % (39.0-77.0); PLATELET COUNT 548 10^3/UL (140-415); RED BLOOD COUNT 3.53 10^6/ul (4.70-6.10); RED CELL DISTRIBUTION WIDTH 11.5 % (11.5-14.5)
[2017-08-08] MEDS: CEFOTAXIME 1 GM/50 ML (PMX) 50 ML IVPB ×3 (06:47→22:17)
[2017-08-08 06:50] LABS: ANION GAP 16 (8-16); BLOOD UREA NITROGEN 24 mg/dl (7-20); CALCIUM 9.4 mg/dl (8.4-10.2); CARBON DIOXIDE 29 mmol/L (21-31); CHLORIDE 100 mmol/L (97-110); CREATININE 0.44 mg/dl (0.61-1.24); GLUCOSE 148 mg/dl (70-220); POTASSIUM 4.4 mmol/L (3.5-5.1); SODIUM 141 mmol/L (135-144)
[2017-08-08] MEDS: FUROSEMIDE 40 MG INJ IV (09:33)
[2017-08-08] MEDS: FAMOTIDINE 20 MG TAB GTB ×2 (09:33→21:21)
[2017-08-08] MEDS: MULTIVITAMINS 30 ML CUP GTB (09:34)
[2017-08-08] MEDS: AMLODIPINE 10 MG TAB PO (09:34)
[2017-08-08] MEDS: LEVETIRACETAM 500 MG (PMX) 100 ML IVPB ×2 (09:34→21:21)
[2017-08-08] MEDS: CARBOXYMETHYLCELLULOSE 0.5% 0.1 ML OPH BOTH EYES ×4 (09:34→21:21)
[2017-08-08] MEDS: LEVOFLOXACIN 750MG/D5W (PMX) 150 ML IVPB (11:58)
[2017-08-09] MEDS: PROPOFOL 100 ML IV ×3 (01:30→22:19)
[2017-08-09 05:12] LABS: ADD MAN DIFF? NO
[2017-08-09 05:23] LABS: BASOPHIL # 0.1 10^3/ul (0.0-0.1); BASOPHILS % 0.7 % (0.0-2.0); EOSINOPHILS # 0.1 10^3/ul (0.0-0.5); HEMATOCRIT 32.2 % (42.0-52.0); HEMOGLOBIN 11.2 g/dl (14.0-18.0); LYMPHOCYTES # 1.3 10^3/ul (0.8-2.9); MEAN CORPUSCULAR HEMOGLOBIN 32.2 pg (29.0-33.0); MEAN CORPUSCULAR HGB CONC 34.8 g/dl (32.0-37.0); MEAN CORPUSCULAR VOLUME 92.5 fl (82.0-101.0); MEAN PLATELET VOLUME 10.8 fl (7.4-10.4); MONOCYTE # 1.1 10^3/ul (0.3-0.9); MONOCYTES % 9.2 % (0.0-11.0); NEUTROPHIL # 9.2 10^3/ul (1.6-7.5); NEUTROPHILS % 76.8 % (39.0-77.0); PLATELET COUNT 557 10^3/UL (140-415); POSITIVE DIFF @See below; RED BLOOD COUNT 3.48 10^6/ul (4.70-6.10); RED CELL DISTRIBUTION WIDTH 11.5 % (11.5-14.5)
[2017-08-09 05:45] LABS: ANION GAP 18 (8-16); BLOOD UREA NITROGEN 24 mg/dl (7-20); CALCIUM 9.3 mg/dl (8.4-10.2); CARBON DIOXIDE 30 mmol/L (21-31); CHLORIDE 99 mmol/L (97-110); CREATININE 0.52 mg/dl (0.61-1.24); GLUCOSE 161 mg/dl (70-220); POTASSIUM 3.6 mmol/L (3.5-5.1); SODIUM 143 mmol/L (135-144)
[2017-08-09] MEDS: CEFOTAXIME 1 GM/50 ML (PMX) 50 ML IVPB ×3 (06:19→21:04)
[2017-08-09] MEDS: MULTIVITAMINS 30 ML CUP GTB (08:29)
[2017-08-09] MEDS: AMLODIPINE 10 MG TAB PO (08:29)
[2017-08-09] MEDS: FUROSEMIDE 40 MG INJ IV (08:29)
[2017-08-09] MEDS: FAMOTIDINE 20 MG TAB GTB ×2 (08:29→21:03)
[2017-08-09] MEDS: CARBOXYMETHYLCELLULOSE 0.5% 0.1 ML OPH BOTH EYES ×4 (09:00→21:04)
[2017-08-09] MEDS: FENTAnyl (DRIP) 1000 mcg/100mL 100 ML IV (10:22)
[2017-08-09] MEDS: LEVETIRACETAM 500 MG (PMX) 100 ML IVPB ×2 (10:23→21:03)
[2017-08-09] MEDS: LEVOFLOXACIN 750MG/D5W (PMX) 150 ML IVPB (11:20)
[2017-08-10] MEDS: FENTAnyl (DRIP) 1000 mcg/100mL 100 ML IV ×2 (05:04→21:30)
[2017-08-10] MEDS: CEFOTAXIME 1 GM/50 ML (PMX) 50 ML IVPB ×3 (07:36→21:20)
[2017-08-10] MEDS: CARBOXYMETHYLCELLULOSE 0.5% 0.1 ML OPH BOTH EYES ×4 (09:00→21:20)
[2017-08-10] MEDS: LEVETIRACETAM 500 MG (PMX) 100 ML IVPB ×2 (10:07→21:20)
[2017-08-10] MEDS: FUROSEMIDE 40 MG INJ IV (10:08)
[2017-08-10] MEDS: FAMOTIDINE 20 MG TAB GTB ×2 (10:08→21:20)
[2017-08-10] MEDS: MULTIVITAMINS 30 ML CUP GTB (10:08)
[2017-08-10] MEDS: AMLODIPINE 10 MG TAB PO (10:08)
[2017-08-10 10:11] LABS: ADD MAN DIFF? NO
[2017-08-10 10:17] LABS: BASOPHIL # 0.1 10^3/ul (0.0-0.1); BASOPHILS % 0.9 % (0.0-2.0); EOSINOPHILS # 0.1 10^3/ul (0.0-0.5); EOSINOPHILS % 0.8 % (0.0-7.0); HEMATOCRIT 32.7 % (42.0-52.0); HEMOGLOBIN 11.6 g/dl (14.0-18.0); LYMPHOCYTES # 1.3 10^3/ul (0.8-2.9); LYMPHOCYTES % 10.5 % (15.0-51.0); MEAN CORPUSCULAR HEMOGLOBIN 32.7 pg (29.0-33.0); MEAN CORPUSCULAR HGB CONC 35.5 g/dl (32.0-37.0); MEAN CORPUSCULAR VOLUME 92.1 fl (82.0-101.0); MEAN PLATELET VOLUME 10.3 fl (7.4-10.4); MONOCYTES % 8.1 % (0.0-11.0); NEUTROPHIL # 10.1 10^3/ul (1.6-7.5); PLATELET COUNT 546 10^3/UL (140-415); RED BLOOD COUNT 3.55 10^6/ul (4.70-6.10); RED CELL DISTRIBUTION WIDTH 11.2 % (11.5-14.5)
[2017-08-10 10:17] LABS: WHITE BLOOD COUNT 12.7 10^3/ul (4.8-10.8)
[2017-08-10 10:34] LABS: ANION GAP 16 (8-16); BLOOD UREA NITROGEN 24 mg/dl (7-20); CALCIUM 9.3 mg/dl (8.4-10.2); CARBON DIOXIDE 30 mmol/L (21-31); CHLORIDE 100 mmol/L (97-110); CREATININE 0.51 mg/dl (0.61-1.24); GLUCOSE 158 mg/dl (70-220); POTASSIUM 3.5 mmol/L (3.5-5.1); SODIUM 142 mmol/L (135-144)
[2017-08-10] MEDS: LEVOFLOXACIN 750MG/D5W (PMX) 150 ML IVPB (11:43)
[2017-08-10] MEDS: PROPOFOL 100 ML IV (13:30)
[2017-08-11 05:45] LABS: ADD MAN DIFF? NO
[2017-08-11 05:52] LABS: WHITE BLOOD COUNT 11.5 10^3/ul (4.8-10.8)
[2017-08-11 05:52] LABS: BASOPHIL # 0.1 10^3/ul (0.0-0.1); BASOPHILS % 1.1 % (0.0-2.0); EOSINOPHILS # 0.1 10^3/ul (0.0-0.5); EOSINOPHILS % 0.8 % (0.0-7.0); HEMATOCRIT 33.5 % (42.0-52.0); HEMOGLOBIN 11.7 g/dl (14.0-18.0); LYMPHOCYTES # 1.3 10^3/ul (0.8-2.9); LYMPHOCYTES % 11.4 % (15.0-51.0); MEAN CORPUSCULAR HEMOGLOBIN 32.3 pg (29.0-33.0); MEAN CORPUSCULAR HGB CONC 34.9 g/dl (32.0-37.0); MEAN CORPUSCULAR VOLUME 92.5 fl (82.0-101.0); MEAN PLATELET VOLUME 10.8 fl (7.4-10.4); MONOCYTE # 0.8 10^3/ul (0.3-0.9); MONOCYTES % 7.2 % (0.0-11.0); NEUTROPHILS % 78.8 % (39.0-77.0); PLATELET COUNT 525 10^3/UL (140-415); RED BLOOD COUNT 3.62 10^6/ul (4.70-6.10); RED CELL DISTRIBUTION WIDTH 11.2 % (11.5-14.5)
[2017-08-11] MEDS: CEFOTAXIME 1 GM/50 ML (PMX) 50 ML IVPB ×2 (06:11→15:15)
[2017-08-11 06:36] LABS: ANION GAP 14 (8-16); BLOOD UREA NITROGEN 24 mg/dl (7-20); CALCIUM 9.3 mg/dl (8.4-10.2); CARBON DIOXIDE 32 mmol/L (21-31); CHLORIDE 102 mmol/L (97-110); CREATININE 0.51 mg/dl (0.61-1.24); GLUCOSE 156 mg/dl (70-220); POTASSIUM 3.5 mmol/L (3.5-5.1); SODIUM 144 mmol/L (135-144)
[2017-08-11] MEDS: PROPOFOL 100 ML IV ×2 (07:30→13:12)
[2017-08-11] MEDS: AMLODIPINE 10 MG TAB PO (08:32)
[2017-08-11] MEDS: MULTIVITAMINS 30 ML CUP GTB (08:32)
[2017-08-11] MEDS: FAMOTIDINE 20 MG TAB GTB (08:32)
[2017-08-11] MEDS: CARBOXYMETHYLCELLULOSE 0.5% 0.1 ML OPH BOTH EYES ×2 (08:33→13:00)
[2017-08-11] MEDS: LEVETIRACETAM 500 MG (PMX) 100 ML IVPB (08:42)
[2017-08-11] MEDS: LEVOFLOXACIN 750MG/D5W (PMX) 150 ML IVPB (11:52)
[2017-08-11 12:13] LABS: AADO2 Arterial 48.8 mmHg (7.0-24.0); Allen Test ACCEPTAB; Arterial Base Excess 5.8 mmol/L (-3.0-3); Arterial Blood Gas Oxygen Sat 98.2 mmHG (95.0-98.0); Arterial COHb 0.3 % (0.0-3.0); Arterial Fraction of Oxyhgb 97.6 % (93.0-99.0); Arterial HCO3 29.8 mmol/L (22.0-26.0); Arterial MetHb 0.3 % (0.0-1.5); Arterial Total Hemglobin 12.8 g/dl (12.0-18.0); Arterial pCO2 40.9 mmhg (35-45); Blood Gas PS 10; MODE VENT - CPAP; Site Left Radial
[2017-08-11] MEDS: hydrALAzine 20 MG INJ IV ×3 (12:36→23:35)
[2017-08-11] MEDS: LEVETIRACETAM 500 MG TAB PO (20:14)
[2017-08-11] MEDS: LEVALBUTEROL (NEB) 0.63 MG/3 ML AMP HHN (20:36)
[2017-08-12] MEDS: METOPROLOL 5 MG INJ IV ×2 (00:07→04:08)
[2017-08-12] MEDS: LEVALBUTEROL (NEB) 0.63 MG/3 ML AMP HHN ×4 (01:53→20:00)
[2017-08-12 05:44] LABS: ADD MAN DIFF? NO
[2017-08-12 05:49] LABS: ABNORMAL IP MESSAGE 1; BASOPHIL # 0.1 10^3/ul (0.0-0.1); BASOPHILS % 0.4 % (0.0-2.0); HEMATOCRIT 35.5 % (42.0-52.0); HEMOGLOBIN 12.2 g/dl (14.0-18.0); LYMPHOCYTES % 4.1 % (15.0-51.0); MEAN CORPUSCULAR HEMOGLOBIN 32.4 pg (29.0-33.0); MEAN CORPUSCULAR HGB CONC 34.4 g/dl (32.0-37.0); MEAN CORPUSCULAR VOLUME 94.4 fl (82.0-101.0); MEAN PLATELET VOLUME 10.6 fl (7.4-10.4); MONOCYTE # 1.4 10^3/ul (0.3-0.9); MONOCYTES % 5.5 % (0.0-11.0); NEUTROPHIL # 22.1 10^3/ul (1.6-7.5); NEUTROPHILS % 89.3 % (39.0-77.0); PLATELET COUNT 584 10^3/UL (140-415); POSITIVE DIFF @See below; RED BLOOD COUNT 3.76 10^6/ul (4.70-6.10); RED CELL DISTRIBUTION WIDTH 11.2 % (11.5-14.5)
[2017-08-12 05:49] LABS: WHITE BLOOD COUNT 24.8 10^3/ul (4.8-10.8)
[2017-08-12 06:04] LABS: ANION GAP 15 (8-16); BLOOD UREA NITROGEN 18 mg/dl (7-20); CALCIUM 9.7 mg/dl (8.4-10.2); CARBON DIOXIDE 32 mmol/L (21-31); CHLORIDE 104 mmol/L (97-110); CREATININE 0.53 mg/dl (0.61-1.24); GLUCOSE 152 mg/dl (70-220); POTASSIUM 3.5 mmol/L (3.5-5.1); SODIUM 147 mmol/L (135-144)
[2017-08-12] MEDS: MULTIVITAMINS 30 ML CUP GTB (08:55)
[2017-08-12] MEDS: AMLODIPINE 10 MG TAB PO (08:55)
[2017-08-12] MEDS: LEVETIRACETAM 500 MG TAB PO ×2 (08:55→22:03)
[2017-08-12 14:54] LABS: AADO2 Arterial 59.9 mmHg (7.0-24.0); Allen Test ACCEPTAB; Arterial Base Excess 6.4 mmol/L (-3.0-3); Arterial Blood Gas Oxygen Sat 96.7 mmHG (95.0-98.0); Arterial COHb 0 % (0.0-3.0); Arterial Fraction of Oxyhgb 96.6 % (93.0-99.0); Arterial HCO3 30.1 mmol/L (22.0-26.0); Arterial MetHb 0.1 % (0.0-1.5); Arterial Total Hemglobin 12.9 g/dl (12.0-18.0); Arterial pCO2 39.9 mmhg (35-45); MODE NASAL CANNULA; Site Left Radial
[2017-08-12] MEDS: DOCUSATE SODIUM 10 MG/ML (10ML CUP) NGT (18:41)
[2017-08-12] MEDS: ACETAMINOPHEN 650MG/20.3ML CUP NGT (22:03)
[2017-08-13] MEDS: LEVALBUTEROL (NEB) 0.63 MG/3 ML AMP HHN ×4 (01:29→20:08)
[2017-08-13 05:47] LABS: ADD MAN DIFF? NO
[2017-08-13 05:51] LABS: WHITE BLOOD COUNT 13.9 10^3/ul (4.8-10.8)
[2017-08-13 05:51] LABS: BASOPHIL # 0.1 10^3/ul (0.0-0.1); BASOPHILS % 0.7 % (0.0-2.0); EOSINOPHILS # 0.1 10^3/ul (0.0-0.5); EOSINOPHILS % 0.6 % (0.0-7.0); HEMATOCRIT 34.8 % (42.0-52.0); HEMOGLOBIN 11.8 g/dl (14.0-18.0); LYMPHOCYTES # 1.4 10^3/ul (0.8-2.9); LYMPHOCYTES % 10.4 % (15.0-51.0); MEAN CORPUSCULAR HEMOGLOBIN 32.1 pg (29.0-33.0); MEAN CORPUSCULAR HGB CONC 33.9 g/dl (32.0-37.0); MEAN CORPUSCULAR VOLUME 94.6 fl (82.0-101.0); MEAN PLATELET VOLUME 11.2 fl (7.4-10.4); MONOCYTE # 0.8 10^3/ul (0.3-0.9); MONOCYTES % 6.1 % (0.0-11.0); NEUTROPHIL # 11.4 10^3/ul (1.6-7.5); NEUTROPHILS % 81.8 % (39.0-77.0); PLATELET COUNT 530 10^3/UL (140-415); RED BLOOD COUNT 3.68 10^6/ul (4.70-6.10); RED CELL DISTRIBUTION WIDTH 11.3 % (11.5-14.5)
[2017-08-13 06:22] LABS: ANION GAP 16 (8-16); BLOOD UREA NITROGEN 19 mg/dl (7-20); CALCIUM 9.4 mg/dl (8.4-10.2); CARBON DIOXIDE 31 mmol/L (21-31); CHLORIDE 106 mmol/L (97-110); CREATININE 0.47 mg/dl (0.61-1.24); GLUCOSE 164 mg/dl (70-220); POTASSIUM 3.5 mmol/L (3.5-5.1); SODIUM 149 mmol/L (135-144)
[2017-08-13 06:48] LABS: MAGNESIUM 2.1 mg/dl (1.7-2.5)
[2017-08-13 06:48] LABS: PHOSPHORUS 3.9 mg/dl (2.5-4.9)
[2017-08-13 08:46] LABS: AADO2 Arterial 42.7 mmHg (7.0-24.0); Allen Test ACCEPTAB; Arterial Base Excess 4.2 mmol/L (-3.0-3); Arterial COHb 0.7 % (0.0-3.0); Arterial Fraction of Oxyhgb 92.1 % (93.0-99.0); Arterial HCO3 26.7 mmol/L (22.0-26.0); Arterial MetHb 0.3 % (0.0-1.5); Arterial Total Hemglobin 14.4 g/dl (12.0-18.0); Arterial pCO2 33.5 mmhg (35-45); MODE ROOM AIR; Site Left Radial
[2017-08-13] MEDS: LEVETIRACETAM 500 MG TAB PO (09:26)
[2017-08-13] MEDS: AMLODIPINE 10 MG TAB PO (09:27)
[2017-08-13] MEDS: MULTIVITAMINS 30 ML CUP GTB (09:27)
[2017-08-13] MEDS: LEVETIRACETAM (100 MG/ML) 5ML CUP PO (21:08)
[2017-08-13] MEDS: morphine 2 MG INJ IV (21:29)
[2017-08-14] MEDS: LEVALBUTEROL (NEB) 0.63 MG/3 ML AMP HHN ×3 (01:46→13:58)
[2017-08-14 05:52] LABS: ADD MAN DIFF? NO
[2017-08-14 06:02] LABS: WHITE BLOOD COUNT 13.1 10^3/ul (4.8-10.8)
[2017-08-14 06:02] LABS: BASOPHIL # 0.1 10^3/ul (0.0-0.1); BASOPHILS % 0.8 % (0.0-2.0); EOSINOPHILS # 0.1 10^3/ul (0.0-0.5); HEMOGLOBIN 12.4 g/dl (14.0-18.0); LYMPHOCYTES # 1.5 10^3/ul (0.8-2.9); LYMPHOCYTES % 11.3 % (15.0-51.0); MEAN CORPUSCULAR HEMOGLOBIN 32.1 pg (29.0-33.0); MEAN CORPUSCULAR HGB CONC 33.5 g/dl (32.0-37.0); MEAN CORPUSCULAR VOLUME 95.9 fl (82.0-101.0); MONOCYTE # 0.8 10^3/ul (0.3-0.9); MONOCYTES % 5.9 % (0.0-11.0); NEUTROPHIL # 10.5 10^3/ul (1.6-7.5); NEUTROPHILS % 80.5 % (39.0-77.0); PLATELET COUNT 530 10^3/UL (140-415); POSITIVE DIFF @See below; RED BLOOD COUNT 3.86 10^6/ul (4.70-6.10); RED CELL DISTRIBUTION WIDTH 11.2 % (11.5-14.5)
[2017-08-14 06:45] LABS: ANION GAP 13 (8-16); BLOOD UREA NITROGEN 19 mg/dl (7-20); CALCIUM 9.4 mg/dl (8.4-10.2); CARBON DIOXIDE 33 mmol/L (21-31); CHLORIDE 108 mmol/L (97-110); CREATININE 0.44 mg/dl (0.61-1.24); GLUCOSE 136 mg/dl (70-220); POTASSIUM 3.3 mmol/L (3.5-5.1); SODIUM 151 mmol/L (135-144)
[2017-08-14 06:56] LABS: PHOSPHORUS 4.6 mg/dl (2.5-4.9)
[2017-08-14 06:56] LABS: MAGNESIUM 2.1 mg/dl (1.7-2.5)
[2017-08-14] MEDS: LEVETIRACETAM (100 MG/ML) 5ML CUP PO ×2 (08:33→20:27)
[2017-08-14] MEDS: AMLODIPINE 10 MG TAB PO (08:33)
[2017-08-14] MEDS: MULTIVITAMINS 30 ML CUP GTB (08:33)
[2017-08-14] MEDS: CEFAZOLIN 2 GM/50 ML (PMX) 50 ML IVPB (14:30)
[2017-08-14] MEDS: DEXTROSE 5% 1,000 ML IV (16:36)
[2017-08-14] MEDS: POTASSIUM CHLORIDE 100 ML IVPB ×2 (16:37→20:36)
[2017-08-14 21:30] LABS: CSF RBC 5000 /uL (0-0); CSF WBC 2 /cmm (0-10)
[2017-08-14 21:33] LABS: TOTAL PROTEIN,CSF 63 mg/dl (12-60)
[2017-08-14 21:33] LABS: GLUCOSE,CSF 78 mg/dl (50-80)
[2017-08-14 21:38] LABS: CSF COLOR SLIGHT XANTHOCHROMIC
[2017-08-14 21:38] LABS: CSF CLARITY HAZY; CSF VOLUME 4.3 ml
[2017-08-14 21:39] LABS: CSF#TUBE COUNT TUBE#1; CSF#TUBES REC'D 1
[2017-08-15 01:51] LABS: SODIUM,URINE RANDOM 43 mmol/L (30-90)
[2017-08-15 02:21] LABS: OSMOLALITY,URINE 753 mOsm/kg (250-1200)
[2017-08-15] MEDS: DEXTROSE 5% 1,000 ML IV ×3 (04:30→21:07)
[2017-08-15 05:37] LABS: ADD MAN DIFF? NO
[2017-08-15 05:41] LABS: HEMOGLOBIN 12.5 g/dl (14.0-18.0); RED BLOOD COUNT 3.89 10^6/ul (4.70-6.10)
[2017-08-15 05:41] LABS: WHITE BLOOD COUNT 13.3 10^3/ul (4.8-10.8)
[2017-08-15 05:42] LABS: BASOPHIL # 0.1 10^3/ul (0.0-0.1); BASOPHILS % 0.5 % (0.0-2.0); EOSINOPHILS # 0.1 10^3/ul (0.0-0.5); EOSINOPHILS % 0.6 % (0.0-7.0); LYMPHOCYTES # 1.3 10^3/ul (0.8-2.9); LYMPHOCYTES % 9.9 % (15.0-51.0); MEAN CORPUSCULAR HEMOGLOBIN 32.1 pg (29.0-33.0); MEAN CORPUSCULAR HGB CONC 33.8 g/dl (32.0-37.0); MEAN CORPUSCULAR VOLUME 95.1 fl (82.0-101.0); MEAN PLATELET VOLUME 11.3 fl (7.4-10.4); MONOCYTE # 0.8 10^3/ul (0.3-0.9); MONOCYTES % 5.9 % (0.0-11.0); NEUTROPHIL # 10.9 10^3/ul (1.6-7.5); NEUTROPHILS % 82.6 % (39.0-77.0); PLATELET COUNT 486 10^3/UL (140-415)
[2017-08-15 06:00] LABS: MAGNESIUM 2.1 mg/dl (1.7-2.5)
[2017-08-15 06:00] LABS: PHOSPHORUS 4.3 mg/dl (2.5-4.9)
[2017-08-15 06:07] LABS: ANION GAP 18 (8-16); BLOOD UREA NITROGEN 18 mg/dl (7-20); CALCIUM 9.7 mg/dl (8.4-10.2); CARBON DIOXIDE 31 mmol/L (21-31); CHLORIDE 105 mmol/L (97-110); CREATININE 0.43 mg/dl (0.61-1.24); GLUCOSE 136 mg/dl (70-220); POTASSIUM 3.6 mmol/L (3.5-5.1); SODIUM 150 mmol/L (135-144)
[2017-08-15] MEDS: LEVETIRACETAM (100 MG/ML) 5ML CUP PO ×2 (09:09→21:11)
[2017-08-15] MEDS: MULTIVITAMINS 30 ML CUP GTB (09:09)
[2017-08-15] MEDS: AMLODIPINE 10 MG TAB PO (09:09)
[2017-08-15] MEDS: CEFAZOLIN 2 GM/50 ML (PMX) 50 ML IVPB (09:11)
[2017-08-15] MEDS: CHLORTHALIDONE 25 MG TAB PO (13:28)
[2017-08-15] MEDS: MIDAZOLAM 1 MG/ML 2 ML INJ (15:08)
[2017-08-15] MEDS: FENTAnyl 50 MCG/ML VIAL ×2 (15:08)
[2017-08-15] MEDS ORDERED: PROPOFOL 100 ML (15:24)
[2017-08-15] MEDS ORDERED: LIDOCAINE 1% (MDV) 20 ML INJ (15:24)
[2017-08-16] MEDS: DEXTROSE 5% 1,000 ML IV (07:55)
[2017-08-16] MEDS: MULTIVITAMINS 30 ML CUP GTB (08:22)
[2017-08-16] MEDS: CHLORTHALIDONE 25 MG TAB PO (08:23)
[2017-08-16] MEDS: LEVETIRACETAM (100 MG/ML) 5ML CUP PO ×2 (08:23→21:23)
[2017-08-16] MEDS: AMLODIPINE 10 MG TAB PO (08:23)
[2017-08-16] MEDS: FUROSEMIDE 20 MG INJ IV (10:01)
[2017-08-16 10:53] LABS: ANION GAP 15 (8-16); BLOOD UREA NITROGEN 12 mg/dl (7-20); CALCIUM 9.1 mg/dl (8.4-10.2); CARBON DIOXIDE 33 mmol/L (21-31); CHLORIDE 95 mmol/L (97-110); CREATININE 0.52 mg/dl (0.61-1.24); GLUCOSE 143 mg/dl (70-220); SODIUM 139 mmol/L (135-144)
[2017-08-17 05:59] LABS: ANION GAP 14 (8-16); BLOOD UREA NITROGEN 16 mg/dl (7-20); CALCIUM 9.1 mg/dl (8.4-10.2); CARBON DIOXIDE 31 mmol/L (21-31); CHLORIDE 92 mmol/L (97-110); CREATININE 0.44 mg/dl (0.61-1.24); GLUCOSE 158 mg/dl (70-220); MAGNESIUM 1.9 mg/dl (1.7-2.5); POTASSIUM 3.4 mmol/L (3.5-5.1); SODIUM 134 mmol/L (135-144)
[2017-08-17] MEDS: LEVETIRACETAM (100 MG/ML) 5ML CUP PO ×2 (08:33→20:57)
[2017-08-17] MEDS: MULTIVITAMINS 30 ML CUP GTB (08:33)
[2017-08-17] MEDS: CHLORTHALIDONE 25 MG TAB PO (08:34)
[2017-08-17] MEDS: AMLODIPINE 10 MG TAB PO (08:34)
[2017-08-17] MEDS: NIFEdipine (XL) 60 MG TAB PO (20:58)
[2017-08-18] MEDS: D5W-0.45 NACL + KCL 20 MEQ 1,000 ML IV ×2 (00:17→10:00)
[2017-08-18 06:03] LABS: ADD MAN DIFF? NO
[2017-08-18 06:14] LABS: BASOPHILS % 0.3 % (0.0-2.0); EOSINOPHILS # 0.2 10^3/ul (0.0-0.5); EOSINOPHILS % 1.5 % (0.0-7.0); HEMATOCRIT 31.2 % (42.0-52.0); HEMOGLOBIN 11.3 g/dl (14.0-18.0); LYMPHOCYTES # 1.4 10^3/ul (0.8-2.9); LYMPHOCYTES % 12.5 % (15.0-51.0); MEAN CORPUSCULAR HGB CONC 36.2 g/dl (32.0-37.0); MEAN CORPUSCULAR VOLUME 88.4 fl (82.0-101.0); MONOCYTE # 0.8 10^3/ul (0.3-0.9); MONOCYTES % 7.3 % (0.0-11.0); NEUTROPHIL # 8.6 10^3/ul (1.6-7.5); NEUTROPHILS % 77.9 % (39.0-77.0); PLATELET COUNT 371 10^3/UL (140-415); RED BLOOD COUNT 3.53 10^6/ul (4.70-6.10)
[2017-08-18 06:17] LABS: PROTIME 14.4 Sec (11.9-14.9); PT RATIO 1.1
[2017-08-18 06:53] LABS: ANION GAP 13 (8-16); BLOOD UREA NITROGEN 16 mg/dl (7-20); CALCIUM 8.9 mg/dl (8.4-10.2); CARBON DIOXIDE 33 mmol/L (21-31); CHLORIDE 91 mmol/L (97-110); CREATININE 0.44 mg/dl (0.61-1.24); GLUCOSE 131 mg/dl (70-220); MAGNESIUM 1.8 mg/dl (1.7-2.5); PHOSPHORUS 3.5 mg/dl (2.5-4.9); SODIUM 134 mmol/L (135-144)
[2017-08-18 06:57] LABS: POTASSIUM 2.9 mmol/L (3.5-5.1)
[2017-08-18] MEDS: MAGNESIUM SULFATE 1 GM/D5W 100 ML IVPB (07:44)
[2017-08-18] MEDS: POTASSIUM CHLORIDE 100 ML IVPB ×2 (08:22→10:38)
[2017-08-18] MEDS: NIFEdipine (XL) 60 MG TAB PO ×2 (09:00→20:55)
[2017-08-18] MEDS: LEVETIRACETAM (100 MG/ML) 5ML CUP PO ×2 (09:00→20:55)
[2017-08-18] MEDS: MULTIVITAMINS 30 ML CUP GTB (09:00)
[2017-08-18] MEDS: CHLORTHALIDONE 25 MG TAB PO (09:00)
[2017-08-18] MEDS: HYDROCODONE/APAP (5/325) TAB GTB (11:37)
[2017-08-18] MEDS ORDERED: FENTAnyl 50 MCG/ML VIAL ×2 (11:58→15:05)
[2017-08-18] MEDS ORDERED: METOCLOPRAMIDE 10 MG INJ (11:58)
[2017-08-18] MEDS ORDERED: MIDAZOLAM 1 MG/ML 2 ML INJ (11:58)
[2017-08-18 13:06] LABS: ANION GAP 12 (8-16); BLOOD UREA NITROGEN 14 mg/dl (7-20); CALCIUM 8.9 mg/dl (8.4-10.2); CARBON DIOXIDE 33 mmol/L (21-31); CHLORIDE 91 mmol/L (97-110); CREATININE 0.44 mg/dl (0.61-1.24); GLUCOSE 128 mg/dl (70-220); SODIUM 132 mmol/L (135-144)
[2017-08-18] MEDS ORDERED: CEFAZOLIN 1 GM INJ (13:09)
[2017-08-18] MEDS ORDERED: PROPOFOL 20 ML (13:09)
[2017-08-18] MEDS ORDERED: ROCURONIUM 50 MG INJ (13:09)
[2017-08-18] MEDS ORDERED: EPHEDrine SULFATE 50 MG/5 ML SYG (13:14)
[2017-08-18] MEDS ORDERED: ONDANSETRON 4 MG INJ (13:14)
[2017-08-18] MEDS: POLYMYXIN/BACITRACIN 1L IRRIG (13:29)
[2017-08-18] MEDS: BACITRACIN/POLYMYXIN 28.35 GM OINT TOP (13:29)
[2017-08-18] MEDS: LIDOCAINE 1%/EPI 30 ML INJ (13:29)
[2017-08-18] MEDS: BUPIVACAINE 0.5% (SDV) 30 ML INJ (13:29)
[2017-08-18] MEDS: NEOMYC/POLYMYX/BACIT 30 GM OINT (13:29)
[2017-08-18] MEDS: ALBUTEROL 0.083% (NEB) 2.5 MG/3 ML AMP HHN ×3 (13:55→20:16)
[2017-08-18] MEDS ORDERED: GELATIN SIZE 100 SPONGE (14:19)
[2017-08-18] MEDS ORDERED: THROMBIN 5000 UNIT VIAL (14:19)
[2017-08-18] MEDS: DIPHENHYDRAMINE 50 MG INJ IV (16:22)
[2017-08-18] MEDS: GUAIFENESIN 20 MG/ML 5ML CUP PO (16:23)
[2017-08-18] MEDS: CEFAZOLIN 1 GM/50 ML (PMX) 50 ML IVPB ×2 (16:23→20:55)
[2017-08-18] MEDS: NEOMYC/POLYMYX/BACIT 30 GM OINT TOP (20:55)
[2017-08-19] MEDS: ALBUTEROL 0.083% (NEB) 2.5 MG/3 ML AMP HHN ×4 (01:22→20:05)
[2017-08-19 04:45] LABS: ADD MAN DIFF? NO
[2017-08-19 04:53] LABS: BASOPHILS % 0.2 % (0.0-2.0); EOSINOPHILS # 0.1 10^3/ul (0.0-0.5); EOSINOPHILS % 0.4 % (0.0-7.0); HEMATOCRIT 28.6 % (42.0-52.0); HEMOGLOBIN 10.4 g/dl (14.0-18.0); LYMPHOCYTES % 6.1 % (15.0-51.0); MEAN CORPUSCULAR HGB CONC 36.4 g/dl (32.0-37.0); MEAN PLATELET VOLUME 11.5 fl (7.4-10.4); MONOCYTE # 0.7 10^3/ul (0.3-0.9); MONOCYTES % 4.6 % (0.0-11.0); NEUTROPHIL # 14.3 10^3/ul (1.6-7.5); NEUTROPHILS % 88.3 % (39.0-77.0); PLATELET COUNT 320 10^3/UL (140-415); RED BLOOD COUNT 3.25 10^6/ul (4.70-6.10); RED CELL DISTRIBUTION WIDTH 11.3 % (11.5-14.5)
[2017-08-19 04:53] LABS: WHITE BLOOD COUNT 16.2 10^3/ul (4.8-10.8)
[2017-08-19 05:21] LABS: ANION GAP 11 (8-16); BLOOD UREA NITROGEN 10 mg/dl (7-20); CALCIUM 8.4 mg/dl (8.4-10.2); CARBON DIOXIDE 30 mmol/L (21-31); CHLORIDE 96 mmol/L (97-110); CREATININE 0.44 mg/dl (0.61-1.24); GLUCOSE 135 mg/dl (70-220); POTASSIUM 3.5 mmol/L (3.5-5.1); SODIUM 133 mmol/L (135-144)
[2017-08-19] MEDS: CEFAZOLIN 1 GM/50 ML (PMX) 50 ML IVPB ×2 (05:57→14:13)
[2017-08-19] MEDS: NIFEdipine (XL) 60 MG TAB PO ×2 (09:05→21:28)
[2017-08-19] MEDS: MULTIVITAMINS 30 ML CUP GTB (09:05)
[2017-08-19] MEDS: LEVETIRACETAM (100 MG/ML) 5ML CUP PO ×2 (09:05→21:28)
[2017-08-19] MEDS: CHLORTHALIDONE 25 MG TAB PO (09:05)
[2017-08-19] MEDS: NEOMYC/POLYMYX/BACIT 30 GM OINT TOP ×3 (09:06→21:28)
[2017-08-19] MEDS: DOCUSATE SODIUM 10 MG/ML (10ML CUP) NGT (21:28)
[2017-08-20] MEDS: ALBUTEROL 0.083% (NEB) 2.5 MG/3 ML AMP HHN ×4 (01:36→20:01)
[2017-08-20 05:04] LABS: ADD MAN DIFF? NO
[2017-08-20 05:09] LABS: BASOPHILS % 0.3 % (0.0-2.0); EOSINOPHILS # 0.1 10^3/ul (0.0-0.5); EOSINOPHILS % 0.8 % (0.0-7.0); HEMATOCRIT 28.1 % (42.0-52.0); HEMOGLOBIN 10.5 g/dl (14.0-18.0); LYMPHOCYTES % 9.1 % (15.0-51.0); MEAN CORPUSCULAR HEMOGLOBIN 32.2 pg (29.0-33.0); MEAN CORPUSCULAR HGB CONC 37.4 g/dl (32.0-37.0); MEAN CORPUSCULAR VOLUME 86.2 fl (82.0-101.0); MEAN PLATELET VOLUME 11.6 fl (7.4-10.4); MONOCYTE # 0.8 10^3/ul (0.3-0.9); MONOCYTES % 7.6 % (0.0-11.0); NEUTROPHIL # 8.7 10^3/ul (1.6-7.5); NEUTROPHILS % 81.7 % (39.0-77.0); PLATELET COUNT 304 10^3/UL (140-415); RED BLOOD COUNT 3.26 10^6/ul (4.70-6.10); RED CELL DISTRIBUTION WIDTH 11.1 % (11.5-14.5)
[2017-08-20 05:09] LABS: WHITE BLOOD COUNT 10.6 10^3/ul (4.8-10.8)
[2017-08-20 05:32] LABS: ANION GAP 12 (8-16); BLOOD UREA NITROGEN 8 mg/dl (7-20); CALCIUM 8.7 mg/dl (8.4-10.2); CARBON DIOXIDE 31 mmol/L (21-31); CHLORIDE 91 mmol/L (97-110); GLUCOSE 137 mg/dl (70-220); POTASSIUM 3.4 mmol/L (3.5-5.1); SODIUM 131 mmol/L (135-144)
[2017-08-20] MEDS: LEVETIRACETAM (100 MG/ML) 5ML CUP PO ×2 (08:41→21:40)
[2017-08-20] MEDS: MULTIVITAMINS 30 ML CUP GTB (08:41)
[2017-08-20] MEDS: NIFEdipine (XL) 60 MG TAB PO ×2 (08:41→21:40)
[2017-08-20] MEDS: CHLORTHALIDONE 25 MG TAB PO (08:41)
[2017-08-20] MEDS: NEOMYC/POLYMYX/BACIT 30 GM OINT TOP ×3 (08:42→21:40)
[2017-08-20] MEDS: POTASSIUM CHLORIDE 100 ML IVPB ×2 (10:57→12:46)
[2017-08-20] MEDS: HYDROCODONE/APAP (5/325) TAB GTB (11:02)
[2017-08-20] MEDS: GUAIFENESIN 20 MG/ML 5ML CUP PO (11:08)
[2017-08-20] MEDS: DOCUSATE SODIUM 10 MG/ML (10ML CUP) NGT (21:40)
[2017-08-21] MEDS: ALBUTEROL 0.083% (NEB) 2.5 MG/3 ML AMP HHN ×4 (01:32→19:25)
[2017-08-21 05:06] LABS: ADD MAN DIFF? NO
[2017-08-21 05:22] LABS: WHITE BLOOD COUNT 11.1 10^3/ul (4.8-10.8)
[2017-08-21 05:22] LABS: BASOPHILS % 0.3 % (0.0-2.0); EOSINOPHILS # 0.2 10^3/ul (0.0-0.5); EOSINOPHILS % 1.4 % (0.0-7.0); HEMATOCRIT 28.3 % (42.0-52.0); HEMOGLOBIN 10.6 g/dl (14.0-18.0); LYMPHOCYTES % 8.7 % (15.0-51.0); MEAN CORPUSCULAR HEMOGLOBIN 32.4 pg (29.0-33.0); MEAN CORPUSCULAR HGB CONC 37.5 g/dl (32.0-37.0); MEAN CORPUSCULAR VOLUME 86.5 fl (82.0-101.0); MEAN PLATELET VOLUME 11.4 fl (7.4-10.4); MONOCYTE # 0.8 10^3/ul (0.3-0.9); MONOCYTES % 6.9 % (0.0-11.0); NEUTROPHIL # 9.1 10^3/ul (1.6-7.5); NEUTROPHILS % 82.3 % (39.0-77.0); PLATELET COUNT 324 10^3/UL (140-415); RED BLOOD COUNT 3.27 10^6/ul (4.70-6.10); RED CELL DISTRIBUTION WIDTH 11.2 % (11.5-14.5)
[2017-08-21 05:52] LABS: ANION GAP 13 (8-16); BLOOD UREA NITROGEN 8 mg/dl (7-20); CALCIUM 8.9 mg/dl (8.4-10.2); CARBON DIOXIDE 33 mmol/L (21-31); CHLORIDE 89 mmol/L (97-110); CREATININE 0.39 mg/dl (0.61-1.24); GLUCOSE 134 mg/dl (70-220); POTASSIUM 3.3 mmol/L (3.5-5.1); SODIUM 132 mmol/L (135-144)
[2017-08-21] MEDS: NIFEdipine (XL) 60 MG TAB PO ×2 (08:35→20:56)
[2017-08-21] MEDS: LEVETIRACETAM (100 MG/ML) 5ML CUP PO ×2 (08:35→20:55)
[2017-08-21] MEDS: CHLORTHALIDONE 25 MG TAB PO (08:35)
[2017-08-21] MEDS: MULTIVITAMINS 30 ML CUP GTB (08:35)
[2017-08-21] MEDS: NEOMYC/POLYMYX/BACIT 30 GM OINT TOP ×3 (08:35→20:56)
[2017-08-21] MEDS: POTASSIUM CHLORIDE 50 ML IVPB (10:20)
[2017-08-21] MEDS: POTASSIUM CHLORIDE 100 ML IVPB ×2 (11:53→13:50)
[2017-08-22] MEDS: ALBUTEROL 0.083% (NEB) 2.5 MG/3 ML AMP HHN ×4 (01:31→19:24)
[2017-08-22 07:46] LABS: ADD MAN DIFF? NO
[2017-08-22 07:53] LABS: BASOPHILS % 0.5 % (0.0-2.0); EOSINOPHILS # 0.3 10^3/ul (0.0-0.5); EOSINOPHILS % 2.8 % (0.0-7.0); HEMATOCRIT 30.4 % (42.0-52.0); HEMOGLOBIN 11.1 g/dl (14.0-18.0); LYMPHOCYTES # 1.5 10^3/ul (0.8-2.9); LYMPHOCYTES % 16.5 % (15.0-51.0); MEAN CORPUSCULAR HEMOGLOBIN 31.8 pg (29.0-33.0); MEAN CORPUSCULAR HGB CONC 36.5 g/dl (32.0-37.0); MEAN CORPUSCULAR VOLUME 87.1 fl (82.0-101.0); MEAN PLATELET VOLUME 11.2 fl (7.4-10.4); MONOCYTE # 0.8 10^3/ul (0.3-0.9); MONOCYTES % 9.3 % (0.0-11.0); NEUTROPHIL # 6.2 10^3/ul (1.6-7.5); NEUTROPHILS % 70.4 % (39.0-77.0); PLATELET COUNT 332 10^3/UL (140-415); RED BLOOD COUNT 3.49 10^6/ul (4.70-6.10); RED CELL DISTRIBUTION WIDTH 11.3 % (11.5-14.5)
[2017-08-22 07:53] LABS: WHITE BLOOD COUNT 8.8 10^3/ul (4.8-10.8)
[2017-08-22 08:12] LABS: ANION GAP 15 (8-16); BLOOD UREA NITROGEN 12 mg/dl (7-20); CARBON DIOXIDE 30 mmol/L (21-31); CHLORIDE 92 mmol/L (97-110); CREATININE 0.39 mg/dl (0.61-1.24); GLUCOSE 133 mg/dl (70-220); SODIUM 133 mmol/L (135-144)
[2017-08-22] MEDS: NEOMYC/POLYMYX/BACIT 30 GM OINT TOP ×3 (09:00→20:58)
[2017-08-22] MEDS: MULTIVITAMINS 30 ML CUP GTB (09:22)
[2017-08-22] MEDS: LEVETIRACETAM (100 MG/ML) 5ML CUP PO ×2 (09:22→20:58)
[2017-08-22] MEDS: NIFEdipine (XL) 60 MG TAB PO ×2 (09:29→20:58)
[2017-08-22] MEDS: CHLORTHALIDONE 25 MG TAB PO (09:29)
[2017-08-22] MEDS: DOCUSATE SODIUM 10 MG/ML (10ML CUP) NGT (14:15)
[2017-08-22] MEDS: HYDROCODONE/APAP (5/325) TAB GTB (14:16)
[2017-08-23] MEDS: ALBUTEROL 0.083% (NEB) 2.5 MG/3 ML AMP HHN ×4 (01:37→19:34)
[2017-08-23 06:59] LABS: ADD MAN DIFF? NO
[2017-08-23 07:04] LABS: BASOPHILS % 0.4 % (0.0-2.0); EOSINOPHILS # 0.3 10^3/ul (0.0-0.5); EOSINOPHILS % 3.4 % (0.0-7.0); HEMATOCRIT 30.7 % (42.0-52.0); HEMOGLOBIN 11.4 g/dl (14.0-18.0); LYMPHOCYTES # 1.3 10^3/ul (0.8-2.9); LYMPHOCYTES % 14.5 % (15.0-51.0); MEAN CORPUSCULAR HEMOGLOBIN 32.6 pg (29.0-33.0); MEAN CORPUSCULAR HGB CONC 37.1 g/dl (32.0-37.0); MEAN CORPUSCULAR VOLUME 87.7 fl (82.0-101.0); MEAN PLATELET VOLUME 10.8 fl (7.4-10.4); MONOCYTE # 0.7 10^3/ul (0.3-0.9); MONOCYTES % 7.5 % (0.0-11.0); NEUTROPHIL # 6.7 10^3/ul (1.6-7.5); NEUTROPHILS % 73.8 % (39.0-77.0); PLATELET COUNT 355 10^3/UL (140-415); RED CELL DISTRIBUTION WIDTH 11.1 % (11.5-14.5)
[2017-08-23 07:04] LABS: WHITE BLOOD COUNT 9.1 10^3/ul (4.8-10.8)
[2017-08-23 07:26] LABS: ANION GAP 15 (8-16); BLOOD UREA NITROGEN 13 mg/dl (7-20); CARBON DIOXIDE 33 mmol/L (21-31); CHLORIDE 88 mmol/L (97-110); CREATININE 0.41 mg/dl (0.61-1.24); GLUCOSE 158 mg/dl (70-220); POTASSIUM 3.2 mmol/L (3.5-5.1); SODIUM 133 mmol/L (135-144)
[2017-08-23] MEDS: LEVETIRACETAM (100 MG/ML) 5ML CUP PO ×2 (08:30→23:50)
[2017-08-23] MEDS: NIFEdipine (XL) 60 MG TAB PO (08:30)
[2017-08-23] MEDS: MULTIVITAMINS 30 ML CUP GTB (08:30)
[2017-08-23] MEDS: CHLORTHALIDONE 25 MG TAB PO (08:31)
[2017-08-23] MEDS: NEOMYC/POLYMYX/BACIT 30 GM OINT TOP ×3 (08:31→21:00)
[2017-08-23] MEDS ORDERED: POTASSIUM CHLORIDE 50 ML IVPB (11:30)
[2017-08-23] MEDS: POTASSIUM CHLORIDE 20 MEQ/SW 100 ML IVPB ×3 (13:50→18:17)
[2017-08-23] MEDS: ONDANSETRON 4 MG INJ IV (18:17)
[2017-08-23] MEDS: NIFEdipine 10 MG CAP GTB (23:45)
[2017-08-23] MEDS: CLINDAMYCIN 600 MG/D5W (PMX) 50 ML IVPB (23:51)
[2017-08-24] MEDS: NIFEdipine 10 MG CAP GTB ×6 (01:00→21:30)
[2017-08-24] MEDS: ALBUTEROL 0.083% (NEB) 2.5 MG/3 ML AMP HHN ×4 (02:12→19:30)
[2017-08-24] MEDS: CLINDAMYCIN 600 MG/D5W (PMX) 50 ML IVPB ×3 (06:09→23:42)
[2017-08-24] MEDS: ACETAMINOPHEN 650MG/20.3ML CUP NGT (09:45)
[2017-08-24] MEDS: LEVETIRACETAM (100 MG/ML) 5ML CUP PO ×2 (09:45→21:29)
[2017-08-24] MEDS: MULTIVITAMINS 30 ML CUP GTB (09:45)
[2017-08-24] MEDS: CHLORTHALIDONE 25 MG TAB PO (09:47)
[2017-08-24] MEDS: NEOMYC/POLYMYX/BACIT 30 GM OINT TOP ×3 (09:47→21:30)
[2017-08-24] MEDS ORDERED: POTASSIUM CHLORIDE 50 ML IVPB (11:00)
[2017-08-24 12:02] LABS: ADD UMIC YES; UR ASCORBIC ACID NEGATIVE (NEGATIVE); UR BILIRUBIN (Dip) NEGATIVE (NEGATIVE); UR BLOOD (Dip) 3+ mg/dL (NEGATIVE); UR CLARITY CLOUDY (CLEAR); UR COLOR AMBER (YELLOW); UR GLUCOSE (Dip) NEGATIVE (NEGATIVE); UR KETONES (Dip) NEGATIVE (NEGATIVE); UR LEUKOCYTE ESTERASE (Dip) NEGATIVE Leu/ul (NEGATIVE); UR MUCUS FEW /HPF (NONE SEEN); UR NITRITE (Dip) NEGATIVE (NEGATIVE); UR RBC > 182 /HPF (0-5); UR SPECIFIC GRAVITY (Dip) 1.026 (1.003-1.030); UR TOTAL PROTEIN (Dip) 2+ mg/dl (NEGATIVE); UR UROBILINOGEN (Dip) 1+ mg/dL (NEGATIVE); UR WBC 84 /HPF (0-5)
[2017-08-24] MEDS: POTASSIUM CHLORIDE 100 ML IVPB ×3 (15:50→21:22)
[2017-08-25] MEDS: NIFEdipine 10 MG CAP GTB ×6 (01:00→20:46)
[2017-08-25] MEDS: ALBUTEROL 0.083% (NEB) 2.5 MG/3 ML AMP HHN ×4 (01:37→20:21)
[2017-08-25] MEDS: CLINDAMYCIN 600 MG/D5W (PMX) 50 ML IVPB ×2 (05:39→14:44)
[2017-08-25 07:45] LABS: ADD MAN DIFF? NO
[2017-08-25 07:52] LABS: BASOPHILS % 0.2 % (0.0-2.0); EOSINOPHILS # 0.1 10^3/ul (0.0-0.5); EOSINOPHILS % 0.6 % (0.0-7.0); HEMATOCRIT 31.7 % (42.0-52.0); HEMOGLOBIN 11.3 g/dl (14.0-18.0); LYMPHOCYTES % 6.5 % (15.0-51.0); MEAN CORPUSCULAR HEMOGLOBIN 31.3 pg (29.0-33.0); MEAN CORPUSCULAR HGB CONC 35.6 g/dl (32.0-37.0); MEAN CORPUSCULAR VOLUME 87.8 fl (82.0-101.0); MEAN PLATELET VOLUME 10.5 fl (7.4-10.4); MONOCYTE # 1.1 10^3/ul (0.3-0.9); MONOCYTES % 6.8 % (0.0-11.0); NEUTROPHIL # 13.7 10^3/ul (1.6-7.5); NEUTROPHILS % 85.6 % (39.0-77.0); PLATELET COUNT 318 10^3/UL (140-415); RED BLOOD COUNT 3.61 10^6/ul (4.70-6.10); RED CELL DISTRIBUTION WIDTH 11.4 % (11.5-14.5)
[2017-08-25 08:12] LABS: PHOSPHORUS 3.9 mg/dl (2.5-4.9)
[2017-08-25 08:12] LABS: MAGNESIUM 1.7 mg/dl (1.7-2.5)
[2017-08-25 08:13] LABS: ANION GAP 17 (8-16); BLOOD UREA NITROGEN 20 mg/dl (7-20); CARBON DIOXIDE 30 mmol/L (21-31); CHLORIDE 92 mmol/L (97-110); CREATININE 0.41 mg/dl (0.61-1.24); GLUCOSE 180 mg/dl (70-220); POTASSIUM 3.8 mmol/L (3.5-5.1); SODIUM 135 mmol/L (135-144)
[2017-08-25] MEDS: CHLORTHALIDONE 25 MG TAB PO (08:56)
[2017-08-25] MEDS: LEVETIRACETAM (100 MG/ML) 5ML CUP PO ×2 (08:56→20:47)
[2017-08-25] MEDS: NEOMYC/POLYMYX/BACIT 30 GM OINT TOP ×3 (08:56→20:47)
[2017-08-25] MEDS: MULTIVITAMINS 30 ML CUP GTB (08:56)
[2017-08-25] MEDS: ACETAMINOPHEN 650MG/20.3ML CUP NGT (12:36)
[2017-08-25] MEDS ORDERED: VANCOMYCIN IV PER PHARMACY XX (18:30)
[2017-08-25] MEDS: SOD CHLORIDE 0.9% IV (19:02)
[2017-08-25 20:06] LABS: LACTIC ACID 1.6 mmol/L (0.5-2.0)
[2017-08-25] MEDS: VANCOMYCIN 1.25 GM in SOD CHLORIDE 0.9% 250 ML IVPB (20:45)
[2017-08-25] MEDS: CEFEPIME 2GM/50 ML (PMX) 50 ML IVPB (21:00)
[2017-08-26] MEDS: ALBUTEROL 0.083% (NEB) 2.5 MG/3 ML AMP HHN ×4 (01:36→20:26)
[2017-08-26] MEDS: NIFEdipine 10 MG CAP GTB ×6 (03:42→21:01)
[2017-08-26 07:26] LABS: ADD MAN DIFF? NO
[2017-08-26] MEDS: VANCOMYCIN 1 GM 250 ML IVPB ×2 (08:10→20:55)
[2017-08-26] MEDS: MULTIVITAMINS 30 ML CUP GTB (08:10)
[2017-08-26] MEDS: LEVETIRACETAM (100 MG/ML) 5ML CUP PO ×2 (08:10→21:02)
[2017-08-26] MEDS: NEOMYC/POLYMYX/BACIT 30 GM OINT TOP ×3 (08:10→21:03)
[2017-08-26 08:16] LABS: ANION GAP 16 (8-16); BLOOD UREA NITROGEN 11 mg/dl (7-20); CALCIUM 8.6 mg/dl (8.4-10.2); CARBON DIOXIDE 31 mmol/L (21-31); CHLORIDE 94 mmol/L (97-110); CREATININE 0.42 mg/dl (0.61-1.24); GLUCOSE 146 mg/dl (70-220); SODIUM 138 mmol/L (135-144)
[2017-08-26 08:17] LABS: BASOPHIL # 0.1 10^3/ul (0.0-0.1); BASOPHILS % 0.4 % (0.0-2.0); EOSINOPHILS # 0.2 10^3/ul (0.0-0.5); EOSINOPHILS % 1.3 % (0.0-7.0); HEMATOCRIT 29.8 % (42.0-52.0); HEMOGLOBIN 10.6 g/dl (14.0-18.0); LYMPHOCYTES # 1.7 10^3/ul (0.8-2.9); LYMPHOCYTES % 12.3 % (15.0-51.0); MEAN CORPUSCULAR HEMOGLOBIN 31.4 pg (29.0-33.0); MEAN CORPUSCULAR HGB CONC 35.6 g/dl (32.0-37.0); MEAN CORPUSCULAR VOLUME 88.2 fl (82.0-101.0); MEAN PLATELET VOLUME 10.7 fl (7.4-10.4); MONOCYTE # 1.1 10^3/ul (0.3-0.9); MONOCYTES % 8.3 % (0.0-11.0); NEUTROPHIL # 10.4 10^3/ul (1.6-7.5); NEUTROPHILS % 77.3 % (39.0-77.0); PLATELET COUNT 305 10^3/UL (140-415); RED BLOOD COUNT 3.38 10^6/ul (4.70-6.10); RED CELL DISTRIBUTION WIDTH 11.2 % (11.5-14.5)
[2017-08-26 08:17] LABS: WHITE BLOOD COUNT 13.5 10^3/ul (4.8-10.8)
[2017-08-26] MEDS: ACETAMINOPHEN 650MG/20.3ML CUP NGT ×2 (08:58→16:57)
[2017-08-26] MEDS: CHLORTHALIDONE 25 MG TAB PO (08:58)
[2017-08-26] MEDS: CEFEPIME 2GM/50 ML (PMX) 50 ML IVPB ×2 (10:54→23:37)
[2017-08-26] MEDS: POTASSIUM CHLORIDE 20 MEQ POWDER FOR ORAL SOLN GTB (12:41)
[2017-08-26] MEDS ORDERED: ARTIFICIAL TEARS 15 ML OPH BOTH EYES (18:00)
[2017-08-26] MEDS: ARTIFICIAL TEARS 15 ML OPH BOTH EYES (20:58)
[2017-08-27] MEDS: ALBUTEROL 0.083% (NEB) 2.5 MG/3 ML AMP HHN ×4 (01:10→21:47)
[2017-08-27] MEDS: NIFEdipine 10 MG CAP GTB ×6 (01:44→21:15)
[2017-08-27 07:33] LABS: ADD MAN DIFF? NO
[2017-08-27 07:47] LABS: WHITE BLOOD COUNT 10.2 10^3/ul (4.8-10.8)
[2017-08-27 07:47] LABS: BASOPHILS % 0.4 % (0.0-2.0); EOSINOPHILS # 0.3 10^3/ul (0.0-0.5); EOSINOPHILS % 2.6 % (0.0-7.0); HEMATOCRIT 29.5 % (42.0-52.0); HEMOGLOBIN 10.8 g/dl (14.0-18.0); LYMPHOCYTES # 1.2 10^3/ul (0.8-2.9); LYMPHOCYTES % 11.9 % (15.0-51.0); MEAN CORPUSCULAR HEMOGLOBIN 31.6 pg (29.0-33.0); MEAN CORPUSCULAR HGB CONC 36.6 g/dl (32.0-37.0); MEAN CORPUSCULAR VOLUME 86.3 fl (82.0-101.0); MEAN PLATELET VOLUME 10.5 fl (7.4-10.4); MONOCYTE # 0.8 10^3/ul (0.3-0.9); MONOCYTES % 7.8 % (0.0-11.0); NEUTROPHIL # 7.8 10^3/ul (1.6-7.5); NEUTROPHILS % 76.9 % (39.0-77.0); PLATELET COUNT 291 10^3/UL (140-415); RED BLOOD COUNT 3.42 10^6/ul (4.70-6.10); RED CELL DISTRIBUTION WIDTH 11.1 % (11.5-14.5)
[2017-08-27 08:02] LABS: ANION GAP 12 (8-16); BLOOD UREA NITROGEN 11 mg/dl (7-20); CALCIUM 8.8 mg/dl (8.4-10.2); CARBON DIOXIDE 37 mmol/L (21-31); CHLORIDE 86 mmol/L (97-110); CREATININE 0.42 mg/dl (0.61-1.24); GLUCOSE 145 mg/dl (70-220); SODIUM 132 mmol/L (135-144)
[2017-08-27 08:03] LABS: MAGNESIUM 1.6 mg/dl (1.7-2.5)
[2017-08-27 08:13] LABS: POTASSIUM 2.8 mmol/L (3.5-5.1)
[2017-08-27 08:15] LABS: VANCOMYCIN,TROUGH < 5.0 ug/ml (10.0-20.0)
[2017-08-27 08:23] LABS: PHOSPHORUS 3.5 mg/dl (2.5-4.9)
[2017-08-27] MEDS: VANCOMYCIN 1 GM 250 ML IVPB (08:38)
[2017-08-27] MEDS: LEVETIRACETAM (100 MG/ML) 5ML CUP PO ×2 (10:52→21:15)
[2017-08-27] MEDS: CHLORTHALIDONE 25 MG TAB PO (10:53)
[2017-08-27] MEDS: CEFEPIME 2GM/50 ML (PMX) 50 ML IVPB ×2 (10:54→21:22)
[2017-08-27] MEDS: NEOMYC/POLYMYX/BACIT 30 GM OINT TOP ×3 (10:54→21:15)
[2017-08-27] MEDS: ARTIFICIAL TEARS 15 ML OPH BOTH EYES ×4 (10:54→21:15)
[2017-08-27] MEDS: MULTIVITAMINS 30 ML CUP GTB (10:54)
[2017-08-27] MEDS ORDERED: POTASSIUM CHLORIDE (SR) 20 MEQ TAB PO (12:00)
[2017-08-27] MEDS: POTASSIUM CHLORIDE 20 MEQ POWDER FOR ORAL SOLN PO ×2 (12:45→16:12)
[2017-08-27] MEDS: MAGNESIUM SULFATE 2 GM/50 ML 50 ML IVPB (12:45)
[2017-08-27] MEDS ORDERED: VANCOMYCIN 1.25 GM in SOD CHLORIDE 0.9% 250 ML IVPB (18:00)
[2017-08-28] MEDS: NIFEdipine 10 MG CAP GTB ×6 (01:52→20:25)
[2017-08-28] MEDS: ACETAMINOPHEN 650MG/20.3ML CUP NGT (01:52)
[2017-08-28] MEDS: ALBUTEROL 0.083% (NEB) 2.5 MG/3 ML AMP HHN ×4 (02:16→20:09)
[2017-08-28 06:49] LABS: ADD MAN DIFF? NO
[2017-08-28 06:57] LABS: BASOPHIL # 0.1 10^3/ul (0.0-0.1); BASOPHILS % 0.5 % (0.0-2.0); EOSINOPHILS # 0.2 10^3/ul (0.0-0.5); EOSINOPHILS % 2.3 % (0.0-7.0); HEMATOCRIT 30.4 % (42.0-52.0); HEMOGLOBIN 11.4 g/dl (14.0-18.0); LYMPHOCYTES # 1.5 10^3/ul (0.8-2.9); LYMPHOCYTES % 16.7 % (15.0-51.0); MEAN CORPUSCULAR HEMOGLOBIN 32.2 pg (29.0-33.0); MEAN CORPUSCULAR HGB CONC 37.5 g/dl (32.0-37.0); MEAN CORPUSCULAR VOLUME 85.9 fl (82.0-101.0); MEAN PLATELET VOLUME 10.1 fl (7.4-10.4); MONOCYTE # 0.8 10^3/ul (0.3-0.9); MONOCYTES % 8.2 % (0.0-11.0); NEUTROPHIL # 6.6 10^3/ul (1.6-7.5); NEUTROPHILS % 71.8 % (39.0-77.0); PLATELET COUNT 301 10^3/UL (140-415); RED BLOOD COUNT 3.54 10^6/ul (4.70-6.10); RED CELL DISTRIBUTION WIDTH 10.8 % (11.5-14.5)
[2017-08-28 06:57] LABS: WHITE BLOOD COUNT 9.2 10^3/ul (4.8-10.8)
[2017-08-28 07:13] LABS: MAGNESIUM 1.6 mg/dl (1.7-2.5)
[2017-08-28 07:13] LABS: PHOSPHORUS 4.1 mg/dl (2.5-4.9)
[2017-08-28 07:19] LABS: ANION GAP 14 (8-16); BLOOD UREA NITROGEN 12 mg/dl (7-20); CALCIUM 8.8 mg/dl (8.4-10.2); CARBON DIOXIDE 32 mmol/L (21-31); CHLORIDE 88 mmol/L (97-110); CREATININE 0.36 mg/dl (0.61-1.24); GLUCOSE 160 mg/dl (70-220); POTASSIUM 3.3 mmol/L (3.5-5.1); SODIUM 131 mmol/L (135-144)
[2017-08-28] MEDS: ARTIFICIAL TEARS 15 ML OPH BOTH EYES ×4 (08:36→20:23)
[2017-08-28] MEDS: LEVETIRACETAM (100 MG/ML) 5ML CUP PO ×2 (08:36→20:27)
[2017-08-28] MEDS: CHLORTHALIDONE 25 MG TAB PO (08:36)
[2017-08-28] MEDS: MULTIVITAMINS 30 ML CUP GTB (08:36)
[2017-08-28] MEDS: NEOMYC/POLYMYX/BACIT 30 GM OINT TOP ×3 (08:36→20:23)
[2017-08-28] MEDS: CEFEPIME 2GM/50 ML (PMX) 50 ML IVPB ×2 (09:42→20:27)
[2017-08-28] MEDS ORDERED: POLYETHYLENE GLYCOL 17 GM PACKET NGT (13:00)
[2017-08-28] MEDS: POTASSIUM CHLORIDE (SR) 20 MEQ TAB PO (13:03)
[2017-08-28] MEDS: POTASSIUM CHLORIDE 20 MEQ POWDER FOR ORAL SOLN NGT (13:06)
[2017-08-28] MEDS: MAGNESIUM SULFATE 2 GM/50 ML 50 ML IVPB (14:02)
[2017-08-28] MEDS: LORAZEPAM 2 MG INJ IV (22:14)
[2017-08-29] MEDS: NIFEdipine 10 MG CAP GTB ×6 (01:18→20:32)
[2017-08-29] MEDS: ALBUTEROL 0.083% (NEB) 2.5 MG/3 ML AMP HHN ×4 (02:58→19:34)
[2017-08-29 05:47] LABS: ADD MAN DIFF? NO
[2017-08-29 05:50] LABS: WHITE BLOOD COUNT 9.6 10^3/ul (4.8-10.8)
[2017-08-29 05:50] LABS: BASOPHIL # 0.1 10^3/ul (0.0-0.1); BASOPHILS % 0.5 % (0.0-2.0); EOSINOPHILS # 0.2 10^3/ul (0.0-0.5); EOSINOPHILS % 2.4 % (0.0-7.0); HEMATOCRIT 30.6 % (42.0-52.0); HEMOGLOBIN 11.3 g/dl (14.0-18.0); LYMPHOCYTES # 1.3 10^3/ul (0.8-2.9); LYMPHOCYTES % 13.1 % (15.0-51.0); MEAN CORPUSCULAR HEMOGLOBIN 31.8 pg (29.0-33.0); MEAN CORPUSCULAR HGB CONC 36.9 g/dl (32.0-37.0); MEAN CORPUSCULAR VOLUME 86.2 fl (82.0-101.0); MEAN PLATELET VOLUME 10.2 fl (7.4-10.4); MONOCYTE # 0.8 10^3/ul (0.3-0.9); MONOCYTES % 8.3 % (0.0-11.0); NEUTROPHIL # 7.2 10^3/ul (1.6-7.5); NEUTROPHILS % 75.1 % (39.0-77.0); PLATELET COUNT 283 10^3/UL (140-415); RED BLOOD COUNT 3.55 10^6/ul (4.70-6.10); RED CELL DISTRIBUTION WIDTH 11.2 % (11.5-14.5)
[2017-08-29 06:41] LABS: ANION GAP 14 (8-16); BLOOD UREA NITROGEN 11 mg/dl (7-20); CALCIUM 8.8 mg/dl (8.4-10.2); CARBON DIOXIDE 36 mmol/L (21-31); CHLORIDE 85 mmol/L (97-110); CREATININE 0.36 mg/dl (0.61-1.24); GLUCOSE 158 mg/dl (70-220); SODIUM 132 mmol/L (135-144)
[2017-08-29 07:05] LABS: PHOSPHORUS 3.8 mg/dl (2.5-4.9)
[2017-08-29 07:05] LABS: MAGNESIUM 1.7 mg/dl (1.7-2.5)
[2017-08-29] MEDS ORDERED: NIFEdipine (XL) 90 MG TAB PO (09:00)
[2017-08-29] MEDS: MULTIVITAMINS 30 ML CUP GTB (09:20)
[2017-08-29] MEDS: LEVETIRACETAM (100 MG/ML) 5ML CUP PO ×2 (09:20→20:31)
[2017-08-29] MEDS: NEOMYC/POLYMYX/BACIT 30 GM OINT TOP ×3 (09:21→20:31)
[2017-08-29] MEDS: ARTIFICIAL TEARS 15 ML OPH BOTH EYES ×4 (09:21→20:30)
[2017-08-29] MEDS: LISINOPRIL 5 MG TAB GTB (10:00)
[2017-08-29] MEDS: POTASSIUM CHLORIDE 20 MEQ POWDER FOR ORAL SOLN GTB (11:09)
[2017-08-29] MEDS: CEFEPIME 2GM/50 ML (PMX) 50 ML IVPB ×2 (11:09→20:31)
[2017-08-29] MEDS: MAGNESIUM SULFATE 2 GM/50 ML 50 ML IVPB (11:11)
[2017-08-29] MEDS: HYDROCODONE/APAP (5/325) TAB GTB (12:44)
[2017-08-29] MEDS: DOCUSATE SODIUM 10 MG/ML (10ML CUP) NGT (20:31)
[2017-08-30] MEDS: NIFEdipine 10 MG CAP GTB ×6 (00:58→21:14)
[2017-08-30] MEDS: ALBUTEROL 0.083% (NEB) 2.5 MG/3 ML AMP HHN ×4 (02:21→20:38)
[2017-08-30 05:42] LABS: ANION GAP 13 (8-16); BLOOD UREA NITROGEN 11 mg/dl (7-20); CALCIUM 8.9 mg/dl (8.4-10.2); CARBON DIOXIDE 35 mmol/L (21-31); CHLORIDE 90 mmol/L (97-110); CREATININE 0.33 mg/dl (0.61-1.24); GLUCOSE 140 mg/dl (70-220); MAGNESIUM 1.9 mg/dl (1.7-2.5); PHOSPHORUS 4.2 mg/dl (2.5-4.9); SODIUM 134 mmol/L (135-144)
[2017-08-30] MEDS: MULTIVITAMINS 30 ML CUP GTB (09:09)
[2017-08-30] MEDS: LISINOPRIL 5 MG TAB GTB (09:09)
[2017-08-30] MEDS: NEOMYC/POLYMYX/BACIT 30 GM OINT TOP ×3 (09:10→21:14)
[2017-08-30] MEDS: LEVETIRACETAM (100 MG/ML) 5ML CUP PO ×2 (09:10→21:14)
[2017-08-30] MEDS: CEFEPIME 2GM/50 ML (PMX) 50 ML IVPB ×2 (09:10→21:16)
[2017-08-30] MEDS: ARTIFICIAL TEARS 15 ML OPH BOTH EYES ×4 (09:10→21:14)
[2017-08-31] MEDS: NIFEdipine 10 MG CAP GTB ×6 (01:00→20:42)
[2017-08-31] MEDS: ALBUTEROL 0.083% (NEB) 2.5 MG/3 ML AMP HHN ×4 (01:57→19:18)
[2017-08-31 06:54] LABS: ANION GAP 15 (8-16); BLOOD UREA NITROGEN 11 mg/dl (7-20); CALCIUM 8.9 mg/dl (8.4-10.2); CARBON DIOXIDE 31 mmol/L (21-31); CHLORIDE 93 mmol/L (97-110); CREATININE 0.36 mg/dl (0.61-1.24); GLUCOSE 162 mg/dl (70-220); MAGNESIUM 1.7 mg/dl (1.7-2.5); PHOSPHORUS 4.1 mg/dl (2.5-4.9); POTASSIUM 4.1 mmol/L (3.5-5.1); SODIUM 135 mmol/L (135-144)
[2017-08-31] MEDS: CEFEPIME 2GM/50 ML (PMX) 50 ML IVPB ×2 (09:46→20:41)
[2017-08-31] MEDS: MULTIVITAMINS 30 ML CUP GTB (09:46)
[2017-08-31] MEDS: LEVETIRACETAM (100 MG/ML) 5ML CUP PO ×2 (09:48→20:41)
[2017-08-31] MEDS: NEOMYC/POLYMYX/BACIT 30 GM OINT TOP ×3 (09:48→20:42)
[2017-08-31] MEDS: LISINOPRIL 5 MG TAB GTB (09:48)
[2017-08-31] MEDS: ARTIFICIAL TEARS 15 ML OPH BOTH EYES ×4 (09:51→20:41)
[2017-08-31] MEDS: ACETAMINOPHEN 650MG/20.3ML CUP NGT (11:05)
[2017-08-31 17:09] LABS: ADD MAN DIFF? NO
[2017-08-31 17:11] LABS: BASOPHIL # 0.1 10^3/ul (0.0-0.1); BASOPHILS % 0.4 % (0.0-2.0); EOSINOPHILS % 0.1 % (0.0-7.0); HEMATOCRIT 32.8 % (42.0-52.0); HEMOGLOBIN 11.6 g/dl (14.0-18.0); LYMPHOCYTES # 1.2 10^3/ul (0.8-2.9); LYMPHOCYTES % 7.8 % (15.0-51.0); MEAN CORPUSCULAR HEMOGLOBIN 31.1 pg (29.0-33.0); MEAN CORPUSCULAR HGB CONC 35.4 g/dl (32.0-37.0); MEAN CORPUSCULAR VOLUME 87.9 fl (82.0-101.0); MEAN PLATELET VOLUME 9.9 fl (7.4-10.4); MONOCYTE # 0.9 10^3/ul (0.3-0.9); MONOCYTES % 6.3 % (0.0-11.0); NEUTROPHIL # 12.6 10^3/ul (1.6-7.5); NEUTROPHILS % 84.8 % (39.0-77.0); PLATELET COUNT 323 10^3/UL (140-415); RED BLOOD COUNT 3.73 10^6/ul (4.70-6.10); RED CELL DISTRIBUTION WIDTH 11.6 % (11.5-14.5)
[2017-08-31 17:11] LABS: WHITE BLOOD COUNT 14.9 10^3/ul (4.8-10.8)
[2017-09-01] MEDS: NIFEdipine 10 MG CAP GTB ×6 (00:46→22:12)
[2017-09-01] MEDS: ACETAMINOPHEN 650MG/20.3ML CUP NGT ×2 (00:49→11:47)
[2017-09-01] MEDS: ALBUTEROL 0.083% (NEB) 2.5 MG/3 ML AMP HHN ×4 (01:02→20:38)
[2017-09-01 06:57] LABS: ANION GAP 15 (8-16); BLOOD UREA NITROGEN 12 mg/dl (7-20); CALCIUM 8.6 mg/dl (8.4-10.2); CARBON DIOXIDE 29 mmol/L (21-31); CHLORIDE 94 mmol/L (97-110); CREATININE 0.35 mg/dl (0.61-1.24); GLUCOSE 170 mg/dl (70-220); MAGNESIUM 1.9 mg/dl (1.7-2.5); PHOSPHORUS 3.9 mg/dl (2.5-4.9); POTASSIUM 3.9 mmol/L (3.5-5.1); SODIUM 134 mmol/L (135-144)
[2017-09-01] MEDS: CEFEPIME 2GM/50 ML (PMX) 50 ML IVPB (09:02)
[2017-09-01] MEDS: MULTIVITAMINS 30 ML CUP GTB (09:02)
[2017-09-01] MEDS: ARTIFICIAL TEARS 15 ML OPH BOTH EYES ×4 (09:05→22:10)
[2017-09-01] MEDS: NEOMYC/POLYMYX/BACIT 30 GM OINT TOP ×3 (09:05→22:10)
[2017-09-01] MEDS: LEVETIRACETAM (100 MG/ML) 5ML CUP PO ×2 (09:05→22:11)
[2017-09-01] MEDS: LISINOPRIL 5 MG TAB GTB (09:05)
[2017-09-01] MEDS: GUAIFENESIN 20 MG/ML 5ML CUP PO (13:35)
[2017-09-02] MEDS: NIFEdipine 10 MG CAP GTB ×6 (00:15→21:18)
[2017-09-02] MEDS: ALBUTEROL 0.083% (NEB) 2.5 MG/3 ML AMP HHN ×4 (02:20→20:41)
[2017-09-02] MEDS: LISINOPRIL 5 MG TAB GTB (09:20)
[2017-09-02] MEDS: LEVETIRACETAM (100 MG/ML) 5ML CUP PO ×2 (09:20→21:17)
[2017-09-02] MEDS: MULTIVITAMINS 30 ML CUP GTB (09:20)
[2017-09-02] MEDS: ARTIFICIAL TEARS 15 ML OPH BOTH EYES ×4 (09:21→21:27)
[2017-09-02] MEDS: NEOMYC/POLYMYX/BACIT 30 GM OINT TOP ×3 (09:22→21:19)
[2017-09-02] MEDS: ACETAMINOPHEN 650MG/20.3ML CUP NGT (14:41)
[2017-09-03] MEDS: NIFEdipine 10 MG CAP GTB ×6 (00:24→21:09)
[2017-09-03] MEDS: ALBUTEROL 0.083% (NEB) 2.5 MG/3 ML AMP HHN ×4 (02:00→20:18)
[2017-09-03] MEDS: LEVETIRACETAM (100 MG/ML) 5ML CUP PO ×2 (08:51→21:08)
[2017-09-03] MEDS: MULTIVITAMINS 30 ML CUP GTB (08:52)
[2017-09-03] MEDS: NEOMYC/POLYMYX/BACIT 30 GM OINT TOP ×3 (08:53→21:09)
[2017-09-03] MEDS: LISINOPRIL 5 MG TAB GTB (08:53)
[2017-09-03] MEDS: ARTIFICIAL TEARS 15 ML OPH BOTH EYES ×4 (08:53→21:09)
[2017-09-04] MEDS: NIFEdipine 10 MG CAP GTB ×6 (01:24→21:00)
[2017-09-04] MEDS: ALBUTEROL 0.083% (NEB) 2.5 MG/3 ML AMP HHN ×4 (01:45→20:07)
[2017-09-04] MEDS: LEVETIRACETAM (100 MG/ML) 5ML CUP PO ×2 (09:26→21:30)
[2017-09-04] MEDS: MULTIVITAMINS 30 ML CUP GTB (09:26)
[2017-09-04] MEDS: LISINOPRIL 5 MG TAB GTB (09:27)
[2017-09-04] MEDS: ARTIFICIAL TEARS 15 ML OPH BOTH EYES ×4 (09:28→21:31)
[2017-09-04] MEDS: NEOMYC/POLYMYX/BACIT 30 GM OINT TOP ×3 (09:28→21:30)
[2017-09-05] MEDS: NIFEdipine 10 MG CAP GTB ×6 (01:02→21:35)
[2017-09-05] MEDS: ALBUTEROL 0.083% (NEB) 2.5 MG/3 ML AMP HHN ×4 (02:39→19:29)
[2017-09-05] MEDS: LEVETIRACETAM (100 MG/ML) 5ML CUP PO ×2 (09:01→21:34)
[2017-09-05] MEDS: MULTIVITAMINS 30 ML CUP GTB (09:01)
[2017-09-05] MEDS: LISINOPRIL 5 MG TAB GTB (09:04)
[2017-09-05] MEDS: NEOMYC/POLYMYX/BACIT 30 GM OINT TOP ×3 (09:05→21:36)
[2017-09-05] MEDS: ARTIFICIAL TEARS 15 ML OPH BOTH EYES ×4 (09:05→21:35)
[2017-09-06] MEDS: NIFEdipine 10 MG CAP GTB ×6 (01:34→21:32)
[2017-09-06] MEDS: ALBUTEROL 0.083% (NEB) 2.5 MG/3 ML AMP HHN ×4 (02:04→19:27)
[2017-09-06] MEDS: MULTIVITAMINS 30 ML CUP GTB (09:01)
[2017-09-06] MEDS: LEVETIRACETAM (100 MG/ML) 5ML CUP PO ×2 (09:02→21:31)
[2017-09-06] MEDS: LISINOPRIL 5 MG TAB GTB (09:02)
[2017-09-06] MEDS: NEOMYC/POLYMYX/BACIT 30 GM OINT TOP ×3 (09:04→21:31)
[2017-09-06] MEDS: ARTIFICIAL TEARS 15 ML OPH BOTH EYES ×4 (09:04→21:31)
[2017-09-07] MEDS: ALBUTEROL 0.083% (NEB) 2.5 MG/3 ML AMP HHN ×4 (00:35→21:55)
[2017-09-07] MEDS: NIFEdipine 10 MG CAP GTB ×6 (01:14→21:24)
[2017-09-07] MEDS: ARTIFICIAL TEARS 15 ML OPH BOTH EYES ×4 (08:58→21:24)
[2017-09-07] MEDS: MULTIVITAMINS 30 ML CUP GTB (08:58)
[2017-09-07] MEDS: NEOMYC/POLYMYX/BACIT 30 GM OINT TOP ×3 (08:59→21:24)
[2017-09-07] MEDS: LEVETIRACETAM (100 MG/ML) 5ML CUP PO ×2 (08:59→21:24)
[2017-09-07] MEDS: LISINOPRIL 5 MG TAB GTB (09:02)
[2017-09-08] MEDS: NIFEdipine 10 MG CAP GTB ×6 (01:41→21:41)
[2017-09-08] MEDS: ALBUTEROL 0.083% (NEB) 2.5 MG/3 ML AMP HHN ×4 (01:58→20:07)
[2017-09-08] MEDS: MULTIVITAMINS 30 ML CUP GTB (08:55)
[2017-09-08] MEDS: ARTIFICIAL TEARS 15 ML OPH BOTH EYES ×4 (08:55→21:38)
[2017-09-08] MEDS: LEVETIRACETAM (100 MG/ML) 5ML CUP PO ×2 (08:55→21:37)
[2017-09-08] MEDS: NEOMYC/POLYMYX/BACIT 30 GM OINT TOP ×3 (08:56→21:37)
[2017-09-08] MEDS: LISINOPRIL 5 MG TAB GTB (08:56)
[2017-09-09] MEDS: NIFEdipine 10 MG CAP GTB ×6 (01:18→21:17)
[2017-09-09] MEDS: ALBUTEROL 0.083% (NEB) 2.5 MG/3 ML AMP HHN ×4 (02:30→19:40)
[2017-09-09] MEDS: LEVETIRACETAM (100 MG/ML) 5ML CUP PO ×2 (08:17→21:16)
[2017-09-09] MEDS: LISINOPRIL 5 MG TAB GTB (08:17)
[2017-09-09] MEDS: ARTIFICIAL TEARS 15 ML OPH BOTH EYES ×4 (08:18→21:17)
[2017-09-09] MEDS: MULTIVITAMINS 30 ML CUP GTB (08:18)
[2017-09-09] MEDS: NEOMYC/POLYMYX/BACIT 30 GM OINT TOP ×3 (08:18→21:16)
[2017-09-09 11:25] LABS: ADD MAN DIFF? NO
[2017-09-09 11:28] LABS: BASOPHILS % 0.5 % (0.0-2.0); EOSINOPHILS # 0.2 10^3/ul (0.0-0.5); EOSINOPHILS % 2.5 % (0.0-7.0); HEMATOCRIT 33.7 % (42.0-52.0); HEMOGLOBIN 11.9 g/dl (14.0-18.0); LYMPHOCYTES # 1.5 10^3/ul (0.8-2.9); LYMPHOCYTES % 16.9 % (15.0-51.0); MEAN CORPUSCULAR HEMOGLOBIN 30.5 pg (29.0-33.0); MEAN CORPUSCULAR HGB CONC 35.3 g/dl (32.0-37.0); MEAN CORPUSCULAR VOLUME 86.4 fl (82.0-101.0); MEAN PLATELET VOLUME 10.6 fl (7.4-10.4); MONOCYTE # 0.7 10^3/ul (0.3-0.9); MONOCYTES % 7.6 % (0.0-11.0); NEUTROPHIL # 6.3 10^3/ul (1.6-7.5); PLATELET COUNT 347 10^3/UL (140-415); RED CELL DISTRIBUTION WIDTH 12.1 % (11.5-14.5)
[2017-09-09 11:28] LABS: WHITE BLOOD COUNT 8.7 10^3/ul (4.8-10.8)
[2017-09-09 11:50] LABS: ANION GAP 16 (8-16); BLOOD UREA NITROGEN 10 mg/dl (7-20); CALCIUM 9.1 mg/dl (8.4-10.2); CARBON DIOXIDE 28 mmol/L (21-31); CHLORIDE 97 mmol/L (97-110); CREATININE 0.36 mg/dl (0.61-1.24); GLUCOSE 180 mg/dl (70-220); MAGNESIUM 1.8 mg/dl (1.7-2.5); PHOSPHORUS 4.6 mg/dl (2.5-4.9); POTASSIUM 3.9 mmol/L (3.5-5.1); SODIUM 137 mmol/L (135-144)
[2017-09-10] MEDS: NIFEdipine 10 MG CAP GTB ×6 (00:49→20:36)
[2017-09-10] MEDS: ALBUTEROL 0.083% (NEB) 2.5 MG/3 ML AMP HHN ×4 (01:21→19:28)
[2017-09-10] MEDS: NEOMYC/POLYMYX/BACIT 30 GM OINT TOP ×3 (08:36→20:38)
[2017-09-10] MEDS: MULTIVITAMINS 30 ML CUP GTB (08:37)
[2017-09-10] MEDS: LISINOPRIL 5 MG TAB GTB (08:38)
[2017-09-10] MEDS: LEVETIRACETAM (100 MG/ML) 5ML CUP PO ×2 (08:38→20:38)
[2017-09-10] MEDS: ARTIFICIAL TEARS 15 ML OPH BOTH EYES ×4 (08:38→20:38)
[2017-09-10] MEDS: HYDROCODONE/APAP (5/325) TAB GTB (17:17)
[2017-09-11] MEDS: ALBUTEROL 0.083% (NEB) 2.5 MG/3 ML AMP HHN ×4 (01:09→20:22)
[2017-09-11] MEDS: NIFEdipine 10 MG CAP GTB ×6 (01:31→23:23)
[2017-09-11] MEDS: ARTIFICIAL TEARS 15 ML OPH BOTH EYES ×4 (08:55→21:00)
[2017-09-11] MEDS: NEOMYC/POLYMYX/BACIT 30 GM OINT TOP ×3 (08:56→23:40)
[2017-09-11] MEDS: LEVETIRACETAM (100 MG/ML) 5ML CUP PO ×2 (08:56→23:23)
[2017-09-11] MEDS: MULTIVITAMINS 30 ML CUP GTB (08:56)
[2017-09-11] MEDS: LISINOPRIL 5 MG TAB GTB (08:58)
[2017-09-12] MEDS: NIFEdipine 10 MG CAP GTB ×6 (01:43→20:39)
[2017-09-12] MEDS: ALBUTEROL 0.083% (NEB) 2.5 MG/3 ML AMP HHN ×4 (02:06→19:50)
[2017-09-12 06:40] LABS: ADD MAN DIFF? NO
[2017-09-12 06:46] LABS: BASOPHILS % 0.6 % (0.0-2.0); EOSINOPHILS # 0.3 10^3/ul (0.0-0.5); EOSINOPHILS % 3.8 % (0.0-7.0); HEMATOCRIT 34.5 % (42.0-52.0); HEMOGLOBIN 12.2 g/dl (14.0-18.0); LYMPHOCYTES # 1.4 10^3/ul (0.8-2.9); LYMPHOCYTES % 20.2 % (15.0-51.0); MEAN CORPUSCULAR HEMOGLOBIN 30.5 pg (29.0-33.0); MEAN CORPUSCULAR HGB CONC 35.4 g/dl (32.0-37.0); MEAN CORPUSCULAR VOLUME 86.3 fl (82.0-101.0); MONOCYTE # 0.6 10^3/ul (0.3-0.9); NEUTROPHIL # 4.7 10^3/ul (1.6-7.5); PLATELET COUNT 322 10^3/UL (140-415); RED CELL DISTRIBUTION WIDTH 11.9 % (11.5-14.5)
[2017-09-12 06:46] LABS: WHITE BLOOD COUNT 7.1 10^3/ul (4.8-10.8)
[2017-09-12 07:06] LABS: ANION GAP 14 (8-16); BLOOD UREA NITROGEN 10 mg/dl (7-20); CALCIUM 9.1 mg/dl (8.4-10.2); CARBON DIOXIDE 29 mmol/L (21-31); CHLORIDE 97 mmol/L (97-110); CREATININE 0.36 mg/dl (0.61-1.24); GLUCOSE 153 mg/dl (70-220); MAGNESIUM 1.7 mg/dl (1.7-2.5); PHOSPHORUS 4.8 mg/dl (2.5-4.9); POTASSIUM 3.7 mmol/L (3.5-5.1); SODIUM 136 mmol/L (135-144)
[2017-09-12] MEDS: MULTIVITAMINS 30 ML CUP GTB (08:42)
[2017-09-12] MEDS: LEVETIRACETAM (100 MG/ML) 5ML CUP PO ×2 (08:42→20:37)
[2017-09-12] MEDS: NEOMYC/POLYMYX/BACIT 30 GM OINT TOP ×3 (08:48→20:37)
[2017-09-12] MEDS: ARTIFICIAL TEARS 15 ML OPH BOTH EYES ×4 (08:51→20:38)
[2017-09-12] MEDS: LISINOPRIL 5 MG TAB GTB (08:53)
[2017-09-13] MEDS: NIFEdipine 10 MG CAP GTB ×6 (01:21→20:54)
[2017-09-13] MEDS: ALBUTEROL 0.083% (NEB) 2.5 MG/3 ML AMP HHN ×4 (01:45→20:32)
[2017-09-13] MEDS: ARTIFICIAL TEARS 15 ML OPH BOTH EYES ×4 (09:00→20:56)
[2017-09-13] MEDS: NEOMYC/POLYMYX/BACIT 30 GM OINT TOP ×3 (09:13→23:55)
[2017-09-13] MEDS: LEVETIRACETAM (100 MG/ML) 5ML CUP PO ×2 (09:15→20:54)
[2017-09-13] MEDS: MULTIVITAMINS 30 ML CUP GTB (09:15)
[2017-09-13] MEDS: LISINOPRIL 5 MG TAB GTB (09:17)
[2017-09-14] MEDS: NIFEdipine 10 MG CAP GTB ×6 (00:41→20:41)
[2017-09-14] MEDS: ALBUTEROL 0.083% (NEB) 2.5 MG/3 ML AMP HHN ×4 (01:43→19:02)
[2017-09-14 04:57] LABS: ADD MAN DIFF? NO
[2017-09-14 05:00] LABS: BASOPHIL # 0.1 10^3/ul (0.0-0.1); BASOPHILS % 0.6 % (0.0-2.0); EOSINOPHILS # 0.2 10^3/ul (0.0-0.5); EOSINOPHILS % 2.3 % (0.0-7.0); HEMATOCRIT 34.2 % (42.0-52.0); HEMOGLOBIN 11.9 g/dl (14.0-18.0); LYMPHOCYTES # 1.6 10^3/ul (0.8-2.9); LYMPHOCYTES % 16.7 % (15.0-51.0); MEAN CORPUSCULAR HEMOGLOBIN 30.1 pg (29.0-33.0); MEAN CORPUSCULAR HGB CONC 34.8 g/dl (32.0-37.0); MEAN CORPUSCULAR VOLUME 86.4 fl (82.0-101.0); MEAN PLATELET VOLUME 10.7 fl (7.4-10.4); MONOCYTE # 0.8 10^3/ul (0.3-0.9); MONOCYTES % 8.6 % (0.0-11.0); NEUTROPHIL # 6.8 10^3/ul (1.6-7.5); NEUTROPHILS % 71.5 % (39.0-77.0); PLATELET COUNT 322 10^3/UL (140-415); RED BLOOD COUNT 3.96 10^6/ul (4.70-6.10); RED CELL DISTRIBUTION WIDTH 11.8 % (11.5-14.5)
[2017-09-14 05:00] LABS: WHITE BLOOD COUNT 9.5 10^3/ul (4.8-10.8)
[2017-09-14 05:22] LABS: ANION GAP 16 (8-16); BLOOD UREA NITROGEN 9 mg/dl (7-20); CALCIUM 9.3 mg/dl (8.4-10.2); CARBON DIOXIDE 28 mmol/L (21-31); CHLORIDE 99 mmol/L (97-110); CREATININE 0.37 mg/dl (0.61-1.24); GLUCOSE 156 mg/dl (70-220); MAGNESIUM 1.7 mg/dl (1.7-2.5); PHOSPHORUS 5.1 mg/dl (2.5-4.9); POTASSIUM 3.8 mmol/L (3.5-5.1); SODIUM 139 mmol/L (135-144)
[2017-09-14] MEDS: MULTIVITAMINS 30 ML CUP GTB (08:43)
[2017-09-14] MEDS: LISINOPRIL 5 MG TAB GTB (08:43)
[2017-09-14] MEDS: LEVETIRACETAM (100 MG/ML) 5ML CUP PO ×2 (08:43→20:40)
[2017-09-14] MEDS: ARTIFICIAL TEARS 15 ML OPH BOTH EYES ×4 (08:45→20:41)
[2017-09-14] MEDS: NEOMYC/POLYMYX/BACIT 30 GM OINT TOP ×3 (08:45→20:41)
[2017-09-15] MEDS: NIFEdipine 10 MG CAP GTB ×6 (00:56→21:19)
[2017-09-15] MEDS: ALBUTEROL 0.083% (NEB) 2.5 MG/3 ML AMP HHN ×4 (01:30→22:22)
[2017-09-15] MEDS: LISINOPRIL 5 MG TAB GTB (09:24)
[2017-09-15] MEDS: MULTIVITAMINS 30 ML CUP GTB (09:24)
[2017-09-15] MEDS: LEVETIRACETAM (100 MG/ML) 5ML CUP PO ×2 (09:25→21:19)
[2017-09-15] MEDS: ARTIFICIAL TEARS 15 ML OPH BOTH EYES ×4 (10:07→21:20)
[2017-09-15] MEDS: NEOMYC/POLYMYX/BACIT 30 GM OINT TOP ×3 (10:07→21:20)
[2017-09-16] MEDS: NIFEdipine 10 MG CAP GTB ×6 (00:51→20:43)
[2017-09-16] MEDS: ALBUTEROL 0.083% (NEB) 2.5 MG/3 ML AMP HHN ×3 (02:55→13:48)
[2017-09-16] MEDS: LISINOPRIL 5 MG TAB GTB (09:40)
[2017-09-16] MEDS: LEVETIRACETAM (100 MG/ML) 5ML CUP PO ×2 (09:40→20:43)
[2017-09-16] MEDS: MULTIVITAMINS 30 ML CUP GTB (09:41)
[2017-09-16] MEDS: NEOMYC/POLYMYX/BACIT 30 GM OINT TOP ×3 (09:42→20:44)
[2017-09-16] MEDS: ARTIFICIAL TEARS 15 ML OPH BOTH EYES ×4 (09:42→20:45)
[2017-09-16] MEDS ORDERED: ALBUTEROL 0.083% (NEB) 2.5 MG/3 ML AMP HHN (15:30)
[2017-09-17] MEDS: NIFEdipine 10 MG CAP GTB ×6 (01:02→20:23)
[2017-09-17] MEDS: NEOMYC/POLYMYX/BACIT 30 GM OINT TOP ×3 (09:58→20:27)
[2017-09-17] MEDS: ARTIFICIAL TEARS 15 ML OPH BOTH EYES ×4 (09:58→20:28)
[2017-09-17] MEDS: LEVETIRACETAM (100 MG/ML) 5ML CUP PO ×2 (09:58→20:26)
[2017-09-17] MEDS: LISINOPRIL 5 MG TAB GTB (10:03)
[2017-09-17] MEDS: MULTIVITAMINS 30 ML CUP GTB (10:03)
[2017-09-18] MEDS: NIFEdipine 10 MG CAP GTB ×6 (01:00→20:02)
[2017-09-18] MEDS: ARTIFICIAL TEARS 15 ML OPH BOTH EYES ×5 (09:00→20:01)
[2017-09-18] MEDS: LISINOPRIL 5 MG TAB GTB (09:00)
[2017-09-18] MEDS: MULTIVITAMINS 30 ML CUP GTB (09:54)
[2017-09-18] MEDS: LEVETIRACETAM (100 MG/ML) 5ML CUP PO ×2 (09:56→20:01)
[2017-09-18] MEDS: NEOMYC/POLYMYX/BACIT 30 GM OINT TOP ×3 (09:57→20:01)
[2017-09-19] MEDS: NIFEdipine 10 MG CAP GTB ×6 (01:45→21:33)
[2017-09-19 06:53] LABS: ADD MAN DIFF? NO
[2017-09-19 06:57] LABS: BASOPHIL # 0.1 10^3/ul (0.0-0.1); BASOPHILS % 0.8 % (0.0-2.0); EOSINOPHILS # 0.3 10^3/ul (0.0-0.5); EOSINOPHILS % 4.6 % (0.0-7.0); HEMATOCRIT 35.9 % (42.0-52.0); HEMOGLOBIN 12.5 g/dl (14.0-18.0); LYMPHOCYTES # 1.3 10^3/ul (0.8-2.9); LYMPHOCYTES % 16.9 % (15.0-51.0); MEAN CORPUSCULAR HEMOGLOBIN 30.3 pg (29.0-33.0); MEAN CORPUSCULAR HGB CONC 34.8 g/dl (32.0-37.0); MEAN CORPUSCULAR VOLUME 86.9 fl (82.0-101.0); MEAN PLATELET VOLUME 11.4 fl (7.4-10.4); MONOCYTE # 0.7 10^3/ul (0.3-0.9); NEUTROPHIL # 5.1 10^3/ul (1.6-7.5); NEUTROPHILS % 68.4 % (39.0-77.0); PLATELET COUNT 273 10^3/UL (140-415); RED BLOOD COUNT 4.13 10^6/ul (4.70-6.10); RED CELL DISTRIBUTION WIDTH 11.8 % (11.5-14.5)
[2017-09-19 06:57] LABS: WHITE BLOOD COUNT 7.5 10^3/ul (4.8-10.8)
[2017-09-19 07:22] LABS: ANION GAP 16 (8-16); BLOOD UREA NITROGEN 10 mg/dl (7-20); CALCIUM 9.2 mg/dl (8.4-10.2); CARBON DIOXIDE 28 mmol/L (21-31); CHLORIDE 101 mmol/L (97-110); CREATININE 0.35 mg/dl (0.61-1.24); GLUCOSE 134 mg/dl (70-220); POTASSIUM 3.9 mmol/L (3.5-5.1); SODIUM 141 mmol/L (135-144)
[2017-09-19] MEDS: NEOMYC/POLYMYX/BACIT 30 GM OINT TOP ×3 (08:35→21:45)
[2017-09-19] MEDS: ARTIFICIAL TEARS 15 ML OPH BOTH EYES ×4 (08:44→21:46)
[2017-09-19] MEDS: MULTIVITAMINS 30 ML CUP GTB (08:47)
[2017-09-19] MEDS: LEVETIRACETAM (100 MG/ML) 5ML CUP PO ×2 (08:48→21:31)
[2017-09-19] MEDS: LISINOPRIL 5 MG TAB GTB (08:49)
[2017-09-19] MEDS: HYDROCODONE/APAP (5/325) TAB GTB (22:12)
[2017-09-20] MEDS: NIFEdipine 10 MG CAP GTB ×6 (02:43→20:17)
[2017-09-20] MEDS: MULTIVITAMINS 30 ML CUP GTB (08:41)
[2017-09-20] MEDS: LEVETIRACETAM (100 MG/ML) 5ML CUP PO ×2 (08:41→20:17)
[2017-09-20] MEDS: LISINOPRIL 5 MG TAB GTB (08:41)
[2017-09-20] MEDS: NEOMYC/POLYMYX/BACIT 30 GM OINT TOP ×3 (08:42→20:18)
[2017-09-20] MEDS: ARTIFICIAL TEARS 15 ML OPH BOTH EYES ×4 (08:42→20:18)
[2017-09-20] MEDS: HYDROCODONE/APAP (5/325) TAB GTB (20:17)
[2017-09-21] MEDS: NIFEdipine 10 MG CAP GTB ×6 (01:00→21:46)
[2017-09-21] MEDS: MULTIVITAMINS 30 ML CUP GTB (09:06)
[2017-09-21] MEDS: LISINOPRIL 5 MG TAB GTB (09:07)
[2017-09-21] MEDS: LEVETIRACETAM (100 MG/ML) 5ML CUP PO ×2 (09:07→21:46)
[2017-09-21] MEDS: ARTIFICIAL TEARS 15 ML OPH BOTH EYES ×4 (09:22→21:46)
[2017-09-21] MEDS: NEOMYC/POLYMYX/BACIT 30 GM OINT TOP ×3 (09:24→21:46)
[2017-09-22] MEDS: NIFEdipine 10 MG CAP GTB ×6 (01:19→21:00)
[2017-09-22] MEDS: ARTIFICIAL TEARS 15 ML OPH BOTH EYES ×4 (09:46→20:59)
[2017-09-22] MEDS: MULTIVITAMINS 30 ML CUP GTB (09:47)
[2017-09-22] MEDS: LISINOPRIL 5 MG TAB GTB (09:48)
[2017-09-22] MEDS: LEVETIRACETAM (100 MG/ML) 5ML CUP PO ×2 (09:48→20:59)
[2017-09-22] MEDS: NEOMYC/POLYMYX/BACIT 30 GM OINT TOP ×3 (09:48→20:59)
[2017-09-23] MEDS: NIFEdipine 10 MG CAP GTB ×6 (01:18→21:31)
[2017-09-23 06:29] LABS: ADD MAN DIFF? NO
[2017-09-23 06:34] LABS: BASOPHIL # 0.1 10^3/ul (0.0-0.1); BASOPHILS % 0.7 % (0.0-2.0); EOSINOPHILS # 0.2 10^3/ul (0.0-0.5); HEMATOCRIT 36.5 % (42.0-52.0); HEMOGLOBIN 12.6 g/dl (14.0-18.0); LYMPHOCYTES # 1.5 10^3/ul (0.8-2.9); MEAN CORPUSCULAR HEMOGLOBIN 30.1 pg (29.0-33.0); MEAN CORPUSCULAR HGB CONC 34.5 g/dl (32.0-37.0); MEAN CORPUSCULAR VOLUME 87.3 fl (82.0-101.0); MEAN PLATELET VOLUME 11.7 fl (7.4-10.4); MONOCYTE # 0.6 10^3/ul (0.3-0.9); MONOCYTES % 8.1 % (0.0-11.0); NEUTROPHIL # 4.9 10^3/ul (1.6-7.5); NEUTROPHILS % 67.9 % (39.0-77.0); PLATELET COUNT 240 10^3/UL (140-415); RED BLOOD COUNT 4.18 10^6/ul (4.70-6.10); RED CELL DISTRIBUTION WIDTH 12.1 % (11.5-14.5)
[2017-09-23 06:34] LABS: WHITE BLOOD COUNT 7.3 10^3/ul (4.8-10.8)
[2017-09-23 06:58] LABS: ANION GAP 12 (8-16); BLOOD UREA NITROGEN 8 mg/dl (7-20); CALCIUM 9.1 mg/dl (8.4-10.2); CARBON DIOXIDE 31 mmol/L (21-31); CHLORIDE 100 mmol/L (97-110); CREATININE 0.37 mg/dl (0.61-1.24); GLUCOSE 134 mg/dl (70-220); MAGNESIUM 1.7 mg/dl (1.7-2.5); PHOSPHORUS 4.6 mg/dl (2.5-4.9); POTASSIUM 3.8 mmol/L (3.5-5.1); SODIUM 139 mmol/L (135-144)
[2017-09-23] MEDS: LEVETIRACETAM (100 MG/ML) 5ML CUP PO ×2 (09:17→21:31)
[2017-09-23] MEDS: LISINOPRIL 5 MG TAB GTB (09:17)
[2017-09-23] MEDS: ARTIFICIAL TEARS 15 ML OPH BOTH EYES ×4 (09:18→21:32)
[2017-09-23] MEDS: NEOMYC/POLYMYX/BACIT 30 GM OINT TOP ×3 (09:18→21:31)
[2017-09-23] MEDS: MULTIVITAMINS 30 ML CUP GTB (09:19)
[2017-09-24] MEDS: NIFEdipine 10 MG CAP GTB ×6 (01:47→21:04)
[2017-09-24] MEDS: MULTIVITAMINS 30 ML CUP GTB (08:43)
[2017-09-24] MEDS: LEVETIRACETAM (100 MG/ML) 5ML CUP PO ×2 (08:43→21:04)
[2017-09-24] MEDS: LISINOPRIL 5 MG TAB GTB (08:43)
[2017-09-24] MEDS: NEOMYC/POLYMYX/BACIT 30 GM OINT TOP ×3 (08:44→21:04)
[2017-09-24] MEDS: ARTIFICIAL TEARS 15 ML OPH BOTH EYES ×4 (09:47→21:04)
[2017-09-24] MEDS ORDERED: BARIUM SULFATE 135 ML (E-Z HD) PO (10:13)
[2017-09-25] MEDS: NIFEdipine 10 MG CAP GTB ×6 (01:00→20:38)
[2017-09-25] MEDS: MULTIVITAMINS 30 ML CUP GTB (09:54)
[2017-09-25] MEDS: LISINOPRIL 5 MG TAB GTB (09:54)
[2017-09-25] MEDS: LEVETIRACETAM (100 MG/ML) 5ML CUP PO ×2 (09:54→20:43)
[2017-09-25] MEDS: NEOMYC/POLYMYX/BACIT 30 GM OINT TOP ×3 (09:55→20:49)
[2017-09-25] MEDS: ARTIFICIAL TEARS 15 ML OPH BOTH EYES ×4 (09:55→20:50)
[2017-09-26] MEDS: NIFEdipine 10 MG CAP GTB ×6 (02:51→22:00)
[2017-09-26] MEDS: MULTIVITAMINS 30 ML CUP GTB (09:35)
[2017-09-26] MEDS: ARTIFICIAL TEARS 15 ML OPH BOTH EYES ×4 (09:36→22:04)
[2017-09-26] MEDS: LISINOPRIL 5 MG TAB GTB (09:36)
[2017-09-26] MEDS: LEVETIRACETAM (100 MG/ML) 5ML CUP PO ×2 (09:36→22:03)
[2017-09-26] MEDS: NEOMYC/POLYMYX/BACIT 30 GM OINT TOP ×3 (09:36→22:04)
[2017-09-27] MEDS: NIFEdipine 10 MG CAP GTB ×6 (01:18→21:38)
[2017-09-27] MEDS: ARTIFICIAL TEARS 15 ML OPH BOTH EYES ×4 (09:36→21:38)
[2017-09-27] MEDS: MULTIVITAMINS 30 ML CUP GTB (09:37)
[2017-09-27] MEDS: LISINOPRIL 5 MG TAB GTB (09:37)
[2017-09-27] MEDS: LEVETIRACETAM (100 MG/ML) 5ML CUP PO ×2 (09:37→21:38)
[2017-09-27] MEDS: NEOMYC/POLYMYX/BACIT 30 GM OINT TOP ×3 (09:38→21:38)
[2017-09-28] MEDS: NIFEdipine 10 MG CAP GTB ×6 (02:16→20:35)
[2017-09-28 05:56] LABS: ANION GAP 16 (8-16); BLOOD UREA NITROGEN 9 mg/dl (7-20); CALCIUM 9.3 mg/dl (8.4-10.2); CARBON DIOXIDE 28 mmol/L (21-31); CHLORIDE 101 mmol/L (97-110); CREATININE 0.35 mg/dl (0.61-1.24); GLUCOSE 141 mg/dl (70-220); MAGNESIUM 1.7 mg/dl (1.7-2.5); POTASSIUM 3.8 mmol/L (3.5-5.1); SODIUM 141 mmol/L (135-144)
[2017-09-28] MEDS: ARTIFICIAL TEARS 15 ML OPH BOTH EYES ×4 (09:31→20:39)
[2017-09-28] MEDS: MULTIVITAMINS 30 ML CUP GTB (09:32)
[2017-09-28] MEDS: LEVETIRACETAM (100 MG/ML) 5ML CUP PO ×2 (09:33→20:33)
[2017-09-28] MEDS: NEOMYC/POLYMYX/BACIT 30 GM OINT TOP ×3 (09:33→20:39)
[2017-09-28] MEDS: LISINOPRIL 5 MG TAB GTB (12:50)
[2017-09-29] MEDS: NIFEdipine 10 MG CAP GTB ×6 (02:20→20:25)
[2017-09-29] MEDS: LEVETIRACETAM (100 MG/ML) 5ML CUP PO ×2 (08:37→20:25)
[2017-09-29] MEDS: MULTIVITAMINS 30 ML CUP GTB (08:37)
[2017-09-29] MEDS: NEOMYC/POLYMYX/BACIT 30 GM OINT TOP ×3 (08:38→20:26)
[2017-09-29] MEDS: ARTIFICIAL TEARS 15 ML OPH BOTH EYES ×4 (08:38→20:25)
[2017-09-29] MEDS: LISINOPRIL 5 MG TAB GTB (08:41)
[2017-09-30] MEDS: NIFEdipine 10 MG CAP GTB ×6 (01:16→21:00)
[2017-09-30] MEDS: ARTIFICIAL TEARS 15 ML OPH BOTH EYES ×4 (09:32→21:46)
[2017-09-30] MEDS: MULTIVITAMINS 30 ML CUP GTB (09:32)
[2017-09-30] MEDS: LISINOPRIL 5 MG TAB GTB (09:33)
[2017-09-30] MEDS: NEOMYC/POLYMYX/BACIT 30 GM OINT TOP ×3 (09:33→21:46)
[2017-09-30] MEDS: LEVETIRACETAM (100 MG/ML) 5ML CUP PO ×2 (09:33→21:46)
[2017-09-30] MEDS: HYDROCODONE/APAP (5/325) TAB GTB (14:58)
[2017-10-01] MEDS: NIFEdipine 10 MG CAP GTB ×6 (01:21→22:08)
[2017-10-01] MEDS: LEVETIRACETAM (100 MG/ML) 5ML CUP PO ×2 (09:38→22:08)
[2017-10-01] MEDS: MULTIVITAMINS 30 ML CUP GTB (09:38)
[2017-10-01] MEDS: LISINOPRIL 5 MG TAB GTB (09:39)
[2017-10-01] MEDS: ARTIFICIAL TEARS 15 ML OPH BOTH EYES ×4 (09:40→22:09)
[2017-10-01] MEDS: NEOMYC/POLYMYX/BACIT 30 GM OINT TOP ×3 (09:40→22:08)
[2017-10-02] MEDS: NIFEdipine 10 MG CAP GTB ×6 (01:29→22:18)
[2017-10-02] MEDS: LEVETIRACETAM (100 MG/ML) 5ML CUP PO ×2 (08:41→22:15)
[2017-10-02] MEDS: MULTIVITAMINS 30 ML CUP GTB (08:41)
[2017-10-02] MEDS: LISINOPRIL 5 MG TAB GTB (08:42)
[2017-10-02] MEDS: ARTIFICIAL TEARS 15 ML OPH BOTH EYES ×4 (08:43→21:00)
[2017-10-02] MEDS: NEOMYC/POLYMYX/BACIT 30 GM OINT TOP ×3 (08:43→22:14)
[2017-10-03] MEDS: NIFEdipine 10 MG CAP GTB ×6 (02:00→21:23)
[2017-10-03] MEDS: ARTIFICIAL TEARS 15 ML OPH BOTH EYES ×5 (09:00→21:23)
[2017-10-03] MEDS: LEVETIRACETAM (100 MG/ML) 5ML CUP PO ×2 (09:10→21:22)
[2017-10-03] MEDS: LISINOPRIL 5 MG TAB GTB (09:11)
[2017-10-03] MEDS: MULTIVITAMINS 30 ML CUP GTB (09:11)
[2017-10-03] MEDS: NEOMYC/POLYMYX/BACIT 30 GM OINT TOP ×3 (09:18→21:24)
[2017-10-03] MEDS: CITALOPRAM 20 MG TAB GTB (13:57)
[2017-10-04] MEDS: NIFEdipine 10 MG CAP GTB ×6 (01:00→21:49)
[2017-10-04] MEDS: MULTIVITAMINS 30 ML CUP GTB (09:30)
[2017-10-04] MEDS: LISINOPRIL 5 MG TAB GTB (09:31)
[2017-10-04] MEDS: LEVETIRACETAM (100 MG/ML) 5ML CUP PO ×2 (09:31→21:49)
[2017-10-04] MEDS: CITALOPRAM 20 MG TAB GTB (09:31)
[2017-10-04] MEDS: ARTIFICIAL TEARS 15 ML OPH BOTH EYES ×4 (09:32→21:50)
[2017-10-04] MEDS: NEOMYC/POLYMYX/BACIT 30 GM OINT TOP ×3 (09:32→21:49)
[2017-10-05] MEDS: NIFEdipine 10 MG CAP GTB ×6 (01:28→20:56)
[2017-10-05] MEDS: NEOMYC/POLYMYX/BACIT 30 GM OINT TOP ×3 (09:58→20:56)
[2017-10-05] MEDS: ARTIFICIAL TEARS 15 ML OPH BOTH EYES ×4 (09:58→20:56)
[2017-10-05] MEDS: LEVETIRACETAM (100 MG/ML) 5ML CUP PO ×2 (09:59→20:55)
[2017-10-05] MEDS: LISINOPRIL 5 MG TAB GTB (09:59)
[2017-10-05] MEDS: MULTIVITAMINS 30 ML CUP GTB (09:59)
[2017-10-05] MEDS: CITALOPRAM 20 MG TAB GTB (09:59)
[2017-10-06] MEDS: NIFEdipine 10 MG CAP GTB ×6 (01:08→21:07)
[2017-10-06] MEDS: CITALOPRAM 20 MG TAB GTB (10:08)
[2017-10-06] MEDS: LEVETIRACETAM (100 MG/ML) 5ML CUP PO ×2 (10:08→21:08)
[2017-10-06] MEDS: LISINOPRIL 5 MG TAB GTB (10:09)
[2017-10-06] MEDS: MULTIVITAMINS 30 ML CUP GTB (10:10)
[2017-10-06] MEDS: ARTIFICIAL TEARS 15 ML OPH BOTH EYES ×4 (10:10→21:08)
[2017-10-06] MEDS: NEOMYC/POLYMYX/BACIT 30 GM OINT TOP ×3 (10:11→21:08)
[2017-10-07] MEDS: NIFEdipine 10 MG CAP GTB ×6 (01:25→21:34)
[2017-10-07 06:00] LABS: ANION GAP 12 (8-16); BLOOD UREA NITROGEN 9 mg/dl (7-20); CALCIUM 8.9 mg/dl (8.4-10.2); CARBON DIOXIDE 30 mmol/L (21-31); CHLORIDE 99 mmol/L (97-110); CREATININE 0.36 mg/dl (0.61-1.24); GLUCOSE 152 mg/dl (70-220); MAGNESIUM 1.8 mg/dl (1.7-2.5); PHOSPHORUS 4.1 mg/dl (2.5-4.9); POTASSIUM 3.7 mmol/L (3.5-5.1); SODIUM 137 mmol/L (135-144)
[2017-10-07] MEDS: LEVETIRACETAM (100 MG/ML) 5ML CUP PO ×2 (08:44→21:29)
[2017-10-07] MEDS: MULTIVITAMINS 30 ML CUP GTB (08:45)
[2017-10-07] MEDS: LISINOPRIL 5 MG TAB GTB (08:45)
[2017-10-07] MEDS: ARTIFICIAL TEARS 15 ML OPH BOTH EYES ×4 (08:46→21:35)
[2017-10-07] MEDS: NEOMYC/POLYMYX/BACIT 30 GM OINT TOP ×3 (08:46→21:35)
[2017-10-08] MEDS: NIFEdipine 10 MG CAP GTB ×6 (01:12→21:11)
[2017-10-08] MEDS: LEVETIRACETAM (100 MG/ML) 5ML CUP PO ×2 (08:07→21:11)
[2017-10-08] MEDS: MULTIVITAMINS 30 ML CUP GTB (08:07)
[2017-10-08] MEDS: LISINOPRIL 5 MG TAB GTB (08:07)
[2017-10-08] MEDS: NEOMYC/POLYMYX/BACIT 30 GM OINT TOP ×3 (08:08→21:12)
[2017-10-08] MEDS: ARTIFICIAL TEARS 15 ML OPH BOTH EYES ×4 (08:08→21:12)
[2017-10-08] MEDS ORDERED: PENDING SANTYL ORDER FOR WOUND CARE XX (23:00)
[2017-10-09] MEDS: NIFEdipine 10 MG CAP GTB ×6 (01:06→21:00)
[2017-10-09] MEDS: MULTIVITAMINS 30 ML CUP GTB (09:42)
[2017-10-09] MEDS: LEVETIRACETAM (100 MG/ML) 5ML CUP PO ×2 (09:42→21:51)
[2017-10-09] MEDS: LISINOPRIL 5 MG TAB GTB (09:42)
[2017-10-09] MEDS: ARTIFICIAL TEARS 15 ML OPH BOTH EYES ×4 (09:43→21:52)
[2017-10-09] MEDS: NEOMYC/POLYMYX/BACIT 30 GM OINT TOP ×3 (09:43→21:52)
[2017-10-09] MEDS: HYDROCODONE/APAP (5/325) TAB GTB (21:50)
[2017-10-10] MEDS: NIFEdipine 10 MG CAP GTB ×6 (01:00→21:13)
[2017-10-10] MEDS: NEOMYC/POLYMYX/BACIT 30 GM OINT TOP ×3 (08:27→21:05)
[2017-10-10] MEDS: LISINOPRIL 5 MG TAB GTB (08:28)
[2017-10-10] MEDS: LEVETIRACETAM (100 MG/ML) 5ML CUP PO ×2 (08:28→21:05)
[2017-10-10] MEDS: ARTIFICIAL TEARS 15 ML OPH BOTH EYES ×4 (08:28→21:05)
[2017-10-10] MEDS: MULTIVITAMINS 30 ML CUP GTB (08:28)
[2017-10-11] MEDS: NIFEdipine 10 MG CAP GTB ×6 (01:32→20:51)
[2017-10-11] MEDS: MULTIVITAMINS 30 ML CUP GTB (09:15)
[2017-10-11] MEDS: LEVETIRACETAM (100 MG/ML) 5ML CUP PO ×2 (09:15→20:55)
[2017-10-11] MEDS: ARTIFICIAL TEARS 15 ML OPH BOTH EYES ×4 (09:16→20:55)
[2017-10-11] MEDS: NEOMYC/POLYMYX/BACIT 30 GM OINT TOP ×3 (09:16→20:55)
[2017-10-11] MEDS: LISINOPRIL 5 MG TAB GTB (09:16)
[2017-10-12] MEDS: NIFEdipine 10 MG CAP GTB ×6 (01:28→22:42)
[2017-10-12] MEDS: ARTIFICIAL TEARS 15 ML OPH BOTH EYES ×4 (09:17→22:42)
[2017-10-12] MEDS: NEOMYC/POLYMYX/BACIT 30 GM OINT TOP ×3 (09:18→22:42)
[2017-10-12] MEDS: LISINOPRIL 5 MG TAB GTB (09:19)
[2017-10-12] MEDS: LEVETIRACETAM (100 MG/ML) 5ML CUP PO ×2 (09:19→22:41)
[2017-10-12] MEDS: MULTIVITAMINS 30 ML CUP GTB (09:19)
[2017-10-13] MEDS: NIFEdipine 10 MG CAP GTB ×6 (01:50→21:15)
[2017-10-13] MEDS: LISINOPRIL 5 MG TAB GTB (09:14)
[2017-10-13] MEDS: LEVETIRACETAM (100 MG/ML) 5ML CUP PO ×2 (09:14→21:14)
[2017-10-13] MEDS: NEOMYC/POLYMYX/BACIT 30 GM OINT TOP ×3 (09:14→21:18)
[2017-10-13] MEDS: ARTIFICIAL TEARS 15 ML OPH BOTH EYES ×4 (09:14→21:18)
[2017-10-13] MEDS: MULTIVITAMINS 30 ML CUP GTB (09:14)
[2017-10-14] MEDS: NIFEdipine 10 MG CAP GTB ×6 (00:33→20:51)
[2017-10-14] MEDS: NEOMYC/POLYMYX/BACIT 30 GM OINT TOP ×3 (10:07→20:53)
[2017-10-14] MEDS: ARTIFICIAL TEARS 15 ML OPH BOTH EYES ×4 (10:07→20:52)
[2017-10-14] MEDS: MULTIVITAMINS 30 ML CUP GTB (10:07)
[2017-10-14] MEDS: LISINOPRIL 5 MG TAB GTB (10:08)
[2017-10-14] MEDS: LEVETIRACETAM (100 MG/ML) 5ML CUP PO ×2 (10:08→20:51)
[2017-10-15] MEDS: NIFEdipine 10 MG CAP GTB ×6 (01:24→21:12)
[2017-10-15] MEDS: LEVETIRACETAM (100 MG/ML) 5ML CUP PO ×2 (09:12→21:12)
[2017-10-15] MEDS: MULTIVITAMINS 30 ML CUP GTB (09:12)
[2017-10-15] MEDS: ARTIFICIAL TEARS 15 ML OPH BOTH EYES ×4 (09:13→21:12)
[2017-10-15] MEDS: LISINOPRIL 5 MG TAB GTB (09:13)
[2017-10-15] MEDS: NEOMYC/POLYMYX/BACIT 30 GM OINT TOP ×3 (09:13→21:12)
[2017-10-16] MEDS: NIFEdipine 10 MG CAP GTB ×6 (01:00→22:11)
[2017-10-16] MEDS: ARTIFICIAL TEARS 15 ML OPH BOTH EYES ×4 (09:33→22:10)
[2017-10-16] MEDS: MULTIVITAMINS 30 ML CUP GTB (09:33)
[2017-10-16] MEDS: LISINOPRIL 5 MG TAB GTB (09:34)
[2017-10-16] MEDS: NEOMYC/POLYMYX/BACIT 30 GM OINT TOP ×3 (09:34→22:10)
[2017-10-16] MEDS: LEVETIRACETAM (100 MG/ML) 5ML CUP PO ×2 (09:34→22:10)
[2017-10-17] MEDS: NIFEdipine 10 MG CAP GTB ×5 (01:00→17:04)
[2017-10-17] MEDS: MULTIVITAMINS 30 ML CUP GTB (09:27)
[2017-10-17] MEDS: ARTIFICIAL TEARS 15 ML OPH BOTH EYES ×3 (09:28→17:17)
[2017-10-17] MEDS: LEVETIRACETAM (100 MG/ML) 5ML CUP PO (09:28)
[2017-10-17] MEDS: LISINOPRIL 5 MG TAB GTB (09:29)
[2017-10-17] MEDS: NEOMYC/POLYMYX/BACIT 30 GM OINT TOP ×2 (09:29→14:10)
[2017-10-17] MEDS: ACETAMINOPHEN 650MG/20.3ML CUP NGT (15:08)
== END 2017-10-17 17:45 | DRG 23 ==
LOC: TEL 08-21 11:00 → E/R 11:45 → PP2 08-27 09:03 → ICU 15:59
PROC: 00163J6 Bypass Cerebral Ventricle to Peritoneal Cavity with Synthetic Substitute, Percutaneous Approach (ICD-10-PCS; principal; 2017-08-15 15:10)
PROC: 009600Z Drainage of Cerebral Ventricle with Drainage Device, Open Approach (ICD-10-PCS; 2017-08-15 15:10)
PROC: 009600Z Drainage of Cerebral Ventricle with Drainage Device, Open Approach (ICD-10-PCS; 2017-08-15 15:10)
PROC: 0BH17EZ Insertion of Endotracheal Airway into Trachea, Via Natural or Artificial Opening (ICD-10-PCS; 2017-08-15 15:10)
PROC: 5A1955Z Respiratory Ventilation, Greater than 96 Consecutive Hours (ICD-10-PCS; 2017-08-15 15:10)
PROC: 0DH68UZ Insertion of Feeding Device into Stomach, Via Natural or Artificial Opening Endoscopic (ICD-10-PCS; 2017-08-15 15:10)
DX: I61.5 Nontraumatic intracerebral hemorrhage, intraventricular (principal); G93.49 Other encephalopathy; J96.00 Acute respiratory failure, unspecified whether with hypoxia or hypercapnia; G93.6 Cerebral edema; A41.9 Sepsis, unspecified organism; N39.0 Urinary tract infection, site not specified; G91.1 Obstructive hydrocephalus; G81.04 Flaccid hemiplegia affecting left nondominant side; I10 Essential (primary) hypertension; F10.129 Alcohol abuse with intoxication, unspecified; K70.10 Alcoholic hepatitis without ascites; R13.10 Dysphagia, unspecified; Y90.8 Blood alcohol level of 240 mg/100 ml or more; E87.6 Hypokalemia; R40.2432 Glasgow coma scale score 3-8, at arrival to emergency department; B96.20 Unspecified Escherichia coli [E. coli] as the cause of diseases classified elsewhere; J06.9 Acute upper respiratory infection, unspecified
CPT/HCPCS: 31500; 36415; 36600; 70250; 70450; 70496; 70553; 71045; 74018; 74019; 74230; 80048; 80053; 80202; 80306; 80307; 81001; 82803; 82945; 82962; 83036; 83605; 83735; 83935; 84100; 84157; 84300; 85025; 85610; 85730; 86704; 86709; 86803; 87040; 87070; 87081; 87086; 87340; 89051; 89220; 92507; 92523; 92526; 92610; 92611; 93005; 93971; 94002; 94003; 94640; 94664; 94770; 94799; 96374; 96375; 97110; 97163; 97165; 97530; 97535; 99291-25